=== PATIENT | female | born 1930 | race Caucasian/White ===

== ENCOUNTER 2017-07-10 10:10 | Inpatient (IN) | payer OTHER, BC, MEDICARE ==
[2017-07-10] MEDS: NS 1,000 ML IV (10:24)
[2017-07-10 10:42] LABS: BASO % 0.4 % (0.0-1.0); EOS % 0.3 % (0.0-3.0); HEMATOCRIT 44.1 % (36.0-47.0); HEMOGLOBIN 14.1 g/dl (12.0-16.0); IMMATURE GRANULOCYTE # 0.1 10^3/uL (0-0); IMMATURE GRANULOCYTE % 0.6 % (0-0); LYMPH # 1.4 10^3/uL (1.5-4.5); LYMPH % 13.4 % (24.0-44.0); MEAN CORPUSCULAR HEMOGLOBIN 29.6 pg (27.0-33.0); MEAN CORPUSCULAR VOLUME 92.6 fl (80.0-96.0); MONO # 0.6 10^3/uL (0.0-0.8); MONO % 5.8 % (0.0-5.0); NEUTROPHILS # 8.1 10^3/uL (1.8-7.7); NEUTROPHILS % 79.5 % (36.0-66.0); PLATELET COUNT, AUTOMATED 269 10^3/uL (150-450); RED BLOOD COUNT 4.76 10^6/uL (4.00-5.40); RED CELL DISTRIBUTION WIDTH 12.6 % (11.5-14.5); WHITE BLOOD COUNT 10.2 10^3/uL (4.0-10.0)
[2017-07-10] MEDS: ONDANSETRON 4MG/2ML VIAL (J2405) IV (10:49)
[2017-07-10] MEDS: MORPHINE 2 MG/ML 1ML SYRINGE IV ×2 (10:51→13:36)
[2017-07-10 10:52] LABS: INR 0.92; PROTHROMBIN TIME 12.5 SECONDS (12.4-14.5)
[2017-07-10 11:06] LABS: ALBUMIN 3.7 GM/DL (3.2-5.2); ALBUMIN/GLOBULIN RATIO 1.03 (1.00-1.93); ALKALINE PHOSPHATASE 87 U/L (45-117); ALT/SGPT 17 U/L (12-78); ANION GAP 10 MEQ/L (8-16); AST/SGOT 18 U/L (7-37); BILIRUBIN,DIRECT 0.1 MG/DL (0.0-0.2); BILIRUBIN,TOTAL 0.6 MG/DL (0.2-1.0); BLOOD UREA NITROGEN 15 MG/DL (7-18); CALCIUM LEVEL 8.5 MG/DL (8.8-10.2); CARBON DIOXIDE LEVEL 28 MEQ/L (21-32); CHLORIDE LEVEL 101 MEQ/L (98-107); CPK CREATINE PHOSPHOKINASE 50 U/L (26-192); CREATININE FOR GFR 0.87 MG/DL (0.55-1.02); GLOMERULAR FILTRATION RATE > 60.0 (>32); GLUCOSE, FASTING 173 MG/DL (83-110); POTASSIUM SERUM 4.1 MEQ/L (3.5-5.1); SODIUM LEVEL 139 MEQ/L (136-145); TOTAL PROTEIN 7.3 GM/DL (6.4-8.2); TROPONIN I < 0.02 NG/ML (< 0.10)
[2017-07-10 11:08] LABS: CK-MB VALUE MASS 1.1 NG/ML (0.0-3.6)
[2017-07-10] MEDS ORDERED: ACETAMINOPHEN 650 MG SUPP PR (12:30)
[2017-07-10] MEDS ORDERED: ACETAMINOPHEN TAB 650MG DOSE (2X325MG) PO (12:30)
[2017-07-10] MEDS ORDERED: BISACODYL 5 MG TAB PO (12:30)
[2017-07-10] MEDS ORDERED: ceFAZolin 1GM INJ (J0690 PER 500MG) As Ordered (16:03)
[2017-07-10] MEDS: ceFAZolin 1GM INJ (J0690 PER 500MG) As Ordered (16:53)
[2017-07-10] MEDS ORDERED: PHENYLephrine HCL 500 MCG/5 ML (100MCG/ML) SYRINGE (J2370) As Ordered ×3 (17:16→17:31)
[2017-07-10] MEDS ORDERED: PROPOFOL 200 MG/20 ML VIAL As Ordered (17:16)
[2017-07-10] MEDS ORDERED: LIDOCAINE 2% INJ 100 MG/5 ML SDV (FOR ANES.) As Ordered (17:16)
[2017-07-10] MEDS ORDERED: MIDAZOLAM INJ 2 MG/2 ML VIAL (J2250) As Ordered (17:16)
[2017-07-10] MEDS ORDERED: ePHEDrine SULFATE 25 MG/5 ML(5MG/ML) SYRINGE As Ordered (17:16)
[2017-07-10] MEDS ORDERED: fentaNYL 100 MCG/2 ML INJECTION (J3010) As Ordered (17:16)
[2017-07-10] MEDS ORDERED: KETAMINE HCL 200 MG/20 ML VIAL As Ordered (17:16)
[2017-07-10] MEDS ORDERED: ONDANSETRON 4MG/2ML VIAL (J2405) As Ordered (17:16)
[2017-07-10] MEDS: BUPIVACAINE HCL 0.25% 10 ML VIAL As Ordered (17:33)
[2017-07-10] MEDS: LIDOCAINE W/EPINEPHRINE 1% 20ML VIAL As Ordered (17:33)
[2017-07-10] MEDS ORDERED: fentaNYL 100 MCG/2 ML INJECTION (J3010) IV (18:15)
[2017-07-10] MEDS ORDERED: NORCO, ANEXSIA 5/325MG TABLET (HYDROcodone/ACETAMINOPHEN) PO (18:15)
[2017-07-10] MEDS ORDERED: ONDANSETRON 4MG/2ML VIAL (J2405) IV (18:15)
[2017-07-10] MEDS: LR 1,000 ML IV (18:15)
[2017-07-10] MEDS ORDERED: MORPHINE 2 MG/ML 1ML SYRINGE IV ×2 (18:45→22:15)
[2017-07-10] MEDS: D5W/LR 1,000 ML IV (19:30)
[2017-07-10] MEDS: DOCUSATE SODIUM 100 MG CAP PO (20:35)
[2017-07-10] MEDS: WARFARIN SOD 2.5 MG TAB PO (20:35)
[2017-07-10] MEDS: SENOKOT S TAB PO (20:35)
[2017-07-10] MEDS: PERCOCET 5MG/325MG TAB PO (20:37)
[2017-07-10] MEDS: CEFAZOLIN SOD 1 GM in APPROPRIATE DILUENT 1 EA IV (21:57)
[2017-07-11] MEDS: PERCOCET 5MG/325MG TAB PO ×4 (05:09→20:37)
[2017-07-11] MEDS: CEFAZOLIN SOD 1 GM in APPROPRIATE DILUENT 1 EA IV (05:28)
[2017-07-11 07:08] LABS: HEMATOCRIT 32.2 % (36.0-47.0); MEAN CORPUSCULAR HEMOGLOBIN 29.9 pg (27.0-33.0); MEAN CORPUSCULAR HGB CONC 32.6 g/dl (32.0-36.5); MEAN CORPUSCULAR VOLUME 91.7 fl (80.0-96.0); PLATELET COUNT, AUTOMATED 187 10^3/uL (150-450); RED BLOOD COUNT 3.51 10^6/uL (4.00-5.40); RED CELL DISTRIBUTION WIDTH 12.7 % (11.5-14.5)
[2017-07-11 07:13] LABS: HEMOGLOBIN 10.5 g/dl (12.0-16.0)
[2017-07-11 07:18] LABS: INR 1.13; PROTHROMBIN TIME 14.7 SECONDS (12.4-14.5)
[2017-07-11 07:33] LABS: ANION GAP 7 MEQ/L (8-16); BLOOD UREA NITROGEN 9 MG/DL (7-18); CALCIUM LEVEL 7.9 MG/DL (8.8-10.2); CARBON DIOXIDE LEVEL 28 MEQ/L (21-32); CHLORIDE LEVEL 104 MEQ/L (98-107); GLOMERULAR FILTRATION RATE > 60.0 (>32); GLUCOSE, FASTING 131 MG/DL (83-110); POTASSIUM SERUM 3.7 MEQ/L (3.5-5.1); SODIUM LEVEL 139 MEQ/L (136-145)
[2017-07-11] MEDS: MIRALAX *UNIT DOSE* 17GM PACKET PO (09:00)
[2017-07-11] MEDS: SENOKOT S TAB PO ×2 (09:44→20:37)
[2017-07-11] MEDS: METAMUCIL (PSYLLIUM) PACKET PO (09:44)
[2017-07-11] MEDS: DOCUSATE SODIUM 100 MG CAP PO ×2 (09:44→20:37)
[2017-07-11] MEDS: METOPROLOL SUCC *XL* 25MG TAB (TopROL *XL*) PO (09:45)
[2017-07-11] MEDS: ONDANSETRON 4MG/2ML VIAL (J2405) IV (09:56)
[2017-07-11] MEDS: WARFARIN SOD 5 MG TAB PO (16:29)
[2017-07-12] MEDS: PERCOCET 5MG/325MG TAB PO ×3 (04:13→12:48)
[2017-07-12 06:53] LABS: HEMATOCRIT 31.6 % (36.0-47.0); HEMOGLOBIN 10.1 g/dl (12.0-16.0); MEAN CORPUSCULAR HEMOGLOBIN 29.5 pg (27.0-33.0); MEAN CORPUSCULAR VOLUME 92.4 fl (80.0-96.0); PLATELET COUNT, AUTOMATED 163 10^3/uL (150-450); RED BLOOD COUNT 3.42 10^6/uL (4.00-5.40); RED CELL DISTRIBUTION WIDTH 12.7 % (11.5-14.5); WHITE BLOOD COUNT 7.8 10^3/uL (4.0-10.0)
[2017-07-12 07:09] LABS: INR 2.26; PROTHROMBIN TIME 25.8 SECONDS (12.4-14.5)
[2017-07-12 07:11] LABS: ANION GAP 5 MEQ/L (8-16); BLOOD UREA NITROGEN 9 MG/DL (7-18); CALCIUM LEVEL 7.5 MG/DL (8.8-10.2); CARBON DIOXIDE LEVEL 30 MEQ/L (21-32); CHLORIDE LEVEL 102 MEQ/L (98-107); CREATININE FOR GFR 0.57 MG/DL (0.55-1.02); GLOMERULAR FILTRATION RATE > 60.0 (>32); GLUCOSE, FASTING 96 MG/DL (83-110); POTASSIUM SERUM 4.3 MEQ/L (3.5-5.1); SODIUM LEVEL 137 MEQ/L (136-145)
[2017-07-12] MEDS: DOCUSATE SODIUM 100 MG CAP PO ×2 (08:44→20:18)
[2017-07-12] MEDS: MIRALAX *UNIT DOSE* 17GM PACKET PO (08:44)
[2017-07-12] MEDS: SENOKOT S TAB PO ×2 (08:44→20:18)
[2017-07-12] MEDS: METOPROLOL SUCC *XL* 25MG TAB (TopROL *XL*) PO (09:00)
[2017-07-12 12:33] LABS: HEMOGLOBIN 10.6 g/dl (12.0-16.0)
[2017-07-13] MEDS: PERCOCET 5MG/325MG TAB PO ×4 (00:12→19:41)
[2017-07-13 06:10] LABS: HEMATOCRIT 31.9 % (36.0-47.0); HEMOGLOBIN 10.1 g/dl (12.0-16.0); MEAN CORPUSCULAR HEMOGLOBIN 29.4 pg (27.0-33.0); MEAN CORPUSCULAR HGB CONC 31.7 g/dl (32.0-36.5); PLATELET COUNT, AUTOMATED 176 10^3/uL (150-450); RED BLOOD COUNT 3.43 10^6/uL (4.00-5.40); RED CELL DISTRIBUTION WIDTH 12.4 % (11.5-14.5); WHITE BLOOD COUNT 9.3 10^3/uL (4.0-10.0)
[2017-07-13 06:20] LABS: PROTHROMBIN TIME 32.5 SECONDS (12.4-14.5)
[2017-07-13 06:32] LABS: ANION GAP 9 MEQ/L (8-16); BLOOD UREA NITROGEN 14 MG/DL (7-18); CALCIUM LEVEL 8.1 MG/DL (8.8-10.2); CARBON DIOXIDE LEVEL 27 MEQ/L (21-32); CHLORIDE LEVEL 100 MEQ/L (98-107); CREATININE FOR GFR 0.52 MG/DL (0.55-1.02); GLOMERULAR FILTRATION RATE > 60.0 (>32); GLUCOSE, FASTING 55 MG/DL (83-110); POTASSIUM SERUM 4.7 MEQ/L (3.5-5.1); SODIUM LEVEL 136 MEQ/L (136-145)
[2017-07-13] MEDS: DOCUSATE SODIUM 100 MG CAP PO ×2 (09:40→19:40)
[2017-07-13] MEDS: MIRALAX *UNIT DOSE* 17GM PACKET PO (09:40)
[2017-07-13] MEDS: METOPROLOL SUCC *XL* 25MG TAB (TopROL *XL*) PO (09:41)
[2017-07-13] MEDS: SENOKOT S TAB PO ×2 (09:41→19:40)
[2017-07-14] MEDS: PERCOCET 5MG/325MG TAB PO (05:09)
[2017-07-14 07:13] LABS: HEMATOCRIT 32.2 % (36.0-47.0); HEMOGLOBIN 10.2 g/dl (12.0-16.0); MEAN CORPUSCULAR HEMOGLOBIN 29.4 pg (27.0-33.0); MEAN CORPUSCULAR HGB CONC 31.7 g/dl (32.0-36.5); MEAN CORPUSCULAR VOLUME 92.8 fl (80.0-96.0); PLATELET COUNT, AUTOMATED 219 10^3/uL (150-450); RED BLOOD COUNT 3.47 10^6/uL (4.00-5.40); RED CELL DISTRIBUTION WIDTH 12.6 % (11.5-14.5); WHITE BLOOD COUNT 7.5 10^3/uL (4.0-10.0)
[2017-07-14 07:27] LABS: ANION GAP 10 MEQ/L (8-16); BLOOD UREA NITROGEN 13 MG/DL (7-18); CALCIUM LEVEL 8.5 MG/DL (8.8-10.2); CARBON DIOXIDE LEVEL 29 MEQ/L (21-32); CHLORIDE LEVEL 99 MEQ/L (98-107); CREATININE FOR GFR 0.53 MG/DL (0.55-1.02); GLOMERULAR FILTRATION RATE > 60.0 (>32); GLUCOSE, FASTING 66 MG/DL (83-110); POTASSIUM SERUM 4.2 MEQ/L (3.5-5.1); SODIUM LEVEL 138 MEQ/L (136-145)
[2017-07-14 07:31] LABS: INR 2.91; PROTHROMBIN TIME 31.7 SECONDS (12.4-14.5)
[2017-07-14] MEDS: SENOKOT S TAB PO (08:21)
[2017-07-14] MEDS: DOCUSATE SODIUM 100 MG CAP PO (08:21)
[2017-07-14] MEDS: METOPROLOL SUCC *XL* 25MG TAB (TopROL *XL*) PO (08:22)
[2017-07-14] MEDS: MIRALAX *UNIT DOSE* 17GM PACKET PO (08:22)
[2017-07-14] MEDS: BISACODYL 10 MG SUPP PR (10:32)
[2017-07-14] MEDS: MAGNESIUM CITRATE 300 ML BTL PO (11:17)
== END 2017-07-14 13:25 | disposition home or self-care (01) | DRG 482 ==
LOC: M ED 10:10 → M ED INP 13:26 → M MS5PR 18:40
PROC: 0QS706Z Reposition Left Upper Femur with Intramedullary Internal Fixation Device, Open Approach (ICD-10-PCS; principal; 2017-07-10 13:34)
DX: S72.142A Displaced intertrochanteric fracture of left femur, initial encounter for closed fracture (principal); I10 Essential (primary) hypertension; W01.0XXA Fall on same level from slipping, tripping and stumbling without subsequent striking against object, initial encounter; Y92.010 Kitchen of single-family (private) house as the place of occurrence of the external cause; Y93.G3 Activity, cooking and baking; Y99.9 Unspecified external cause status; Z79.899 Other long term (current) drug therapy; Z90.710 Acquired absence of both cervix and uterus

== ENCOUNTER 2017-07-14 13:25 | Inpatient (IN) | payer OTHER ==
[~2017-07-14 13:25] MED LIST: MIRALAX *UNIT DOSE* 17GM PACKET PO
[2017-07-14] MEDS: LevoFLOXacin 250 MG TABLET PO (14:58)
[2017-07-14] MEDS: PERCOCET 5MG/325MG TAB PO (20:45)
[2017-07-14] MEDS: ACETAMINOPHEN TAB 650MG DOSE (2X325MG) PO (20:46)
[2017-07-14] MEDS: DOCUSATE SODIUM 100 MG CAP PO (21:00)
[2017-07-15] MEDS: LevoFLOXacin 250 MG TABLET PO (05:48)
[2017-07-15] MEDS: ACETAMINOPHEN TAB 650MG DOSE (2X325MG) PO (05:48)
[2017-07-15 06:48] LABS: BASO % 0.4 % (0.0-1.0); EOS # 0.2 10^3/uL (0.0-0.50); EOS % 2.1 % (0.0-3.0); HEMATOCRIT 32.1 % (36.0-47.0); HEMOGLOBIN 10.5 g/dl (12.0-16.0); IMMATURE GRANULOCYTE % 0.4 % (0-0); LYMPH % 14.1 % (24.0-44.0); MEAN CORPUSCULAR HEMOGLOBIN 29.5 pg (27.0-33.0); MEAN CORPUSCULAR HGB CONC 32.7 g/dl (32.0-36.5); MEAN CORPUSCULAR VOLUME 90.2 fl (80.0-96.0); MONO # 0.8 10^3/uL (0.0-0.8); MONO % 10.5 % (0.0-5.0); NEUTROPHILS # 5.2 10^3/uL (1.8-7.7); NEUTROPHILS % 72.5 % (36.0-66.0); PLATELET COUNT, AUTOMATED 235 10^3/uL (150-450); RED BLOOD COUNT 3.56 10^6/uL (4.00-5.40); RED CELL DISTRIBUTION WIDTH 12.4 % (11.5-14.5); WHITE BLOOD COUNT 7.1 10^3/uL (4.0-10.0)
[2017-07-15 07:06] LABS: ALBUMIN 2.7 GM/DL (3.2-5.2); ALBUMIN/GLOBULIN RATIO 0.77 (1.00-1.93); ALKALINE PHOSPHATASE 59 U/L (45-117); ALT/SGPT 11 U/L (12-78); ANION GAP 8 MEQ/L (8-16); AST/SGOT 25 U/L (7-37); BILIRUBIN,TOTAL 0.7 MG/DL (0.2-1.0); BLOOD UREA NITROGEN 6 MG/DL (7-18); CALCIUM LEVEL 8.2 MG/DL (8.8-10.2); CARBON DIOXIDE LEVEL 31 MEQ/L (21-32); CHLORIDE LEVEL 99 MEQ/L (98-107); CREATININE FOR GFR 0.45 MG/DL (0.55-1.02); GLOMERULAR FILTRATION RATE > 60.0 (>32); GLUCOSE, FASTING 107 MG/DL (83-110); POTASSIUM SERUM 4.2 MEQ/L (3.5-5.1); SODIUM LEVEL 138 MEQ/L (136-145); TOTAL PROTEIN 6.2 GM/DL (6.4-8.2)
[2017-07-15 07:09] LABS: INR 3.04; PROTHROMBIN TIME 32.8 SECONDS (12.4-14.5)
[2017-07-15] MEDS: DOCUSATE SODIUM 100 MG CAP PO ×2 (07:49→21:00)
[2017-07-15] MEDS: METOPROLOL SUCC *XL* 25MG TAB (TopROL *XL*) PO (07:59)
[2017-07-15] MEDS: PERCOCET 5MG/325MG TAB PO ×2 (16:39→21:05)
[2017-07-16] MEDS: PERCOCET 5MG/325MG TAB PO ×3 (05:46→21:12)
[2017-07-16] MEDS: LevoFLOXacin 250 MG TABLET PO (05:46)
[2017-07-16 06:35] LABS: HEMOGLOBIN 10.4 g/dl (12.0-16.0); MEAN CORPUSCULAR HEMOGLOBIN 29.5 pg (27.0-33.0); MEAN CORPUSCULAR HGB CONC 32.5 g/dl (32.0-36.5); MEAN CORPUSCULAR VOLUME 90.9 fl (80.0-96.0); PLATELET COUNT, AUTOMATED 245 10^3/uL (150-450); RED BLOOD COUNT 3.52 10^6/uL (4.00-5.40); RED CELL DISTRIBUTION WIDTH 12.6 % (11.5-14.5); WHITE BLOOD COUNT 5.9 10^3/uL (4.0-10.0)
[2017-07-16 07:03] LABS: FERRITIN 316 NG/ML (8-252); IRON (FE) 48 UG/DL (50-170); PERCENT SATURATION 20.1 % (13.2-45.0); TOTAL IRON BINDING CAPACITY 239 UG/DL (250-450)
[2017-07-16 07:19] LABS: INR 2.38
[2017-07-16] MEDS: DOCUSATE SODIUM 100 MG CAP PO ×2 (09:57→20:34)
[2017-07-16] MEDS: METOPROLOL SUCC *XL* 25MG TAB (TopROL *XL*) PO (09:58)
[2017-07-17] MEDS: LevoFLOXacin 250 MG TABLET PO (06:14)
[2017-07-17] MEDS: PERCOCET 5MG/325MG TAB PO ×3 (06:15→20:50)
[2017-07-17 06:55] LABS: PROTHROMBIN TIME 24.3 SECONDS (12.4-14.5)
[2017-07-17] MEDS: DOCUSATE SODIUM 100 MG CAP PO ×2 (08:16→20:50)
[2017-07-17] MEDS: METOPROLOL SUCC *XL* 25MG TAB (TopROL *XL*) PO (08:16)
[2017-07-17] MEDS: WARFARIN SOD 1 MG TAB PO (16:16)
[2017-07-17] MEDS: BISACODYL 5 MG TAB PO (20:50)
[2017-07-18] MEDS: PERCOCET 5MG/325MG TAB PO ×3 (03:22→20:38)
[2017-07-18] MEDS: LevoFLOXacin 250 MG TABLET PO (06:52)
[2017-07-18 07:01] LABS: INR 2.45; PROTHROMBIN TIME 27.6 SECONDS (12.4-14.5)
[2017-07-18 08:41] LABS: FOLATE 9.9 NG/ML (>5.4)
[2017-07-18 08:42] LABS: VITAMIN B12 LEVEL 423 PG/ML (247-911)
[2017-07-18] MEDS: DOCUSATE SODIUM 100 MG CAP PO ×2 (08:44→20:38)
[2017-07-18] MEDS: METOPROLOL SUCC *XL* 25MG TAB (TopROL *XL*) PO (08:45)
[2017-07-19] MEDS: LevoFLOXacin 250 MG TABLET PO (05:18)
[2017-07-19 07:25] LABS: INR 2.53; PROTHROMBIN TIME 28.3 SECONDS (12.4-14.5)
[2017-07-19] MEDS: DOCUSATE SODIUM 100 MG CAP PO ×2 (08:14→20:35)
[2017-07-19] MEDS: METOPROLOL SUCC *XL* 25MG TAB (TopROL *XL*) PO (08:14)
[2017-07-19] MEDS: PERCOCET 5MG/325MG TAB PO (08:15)
[2017-07-19] MEDS: ACETAMINOPHEN TAB 650MG DOSE (2X325MG) PO (20:36)
[2017-07-20] MEDS: LevoFLOXacin 250 MG TABLET PO (06:35)
[2017-07-20] MEDS: PERCOCET 5MG/325MG TAB PO (06:36)
[2017-07-20 07:47] LABS: HEMATOCRIT 33.7 % (36.0-47.0); HEMOGLOBIN 10.9 g/dl (12.0-16.0); MEAN CORPUSCULAR HEMOGLOBIN 29.2 pg (27.0-33.0); MEAN CORPUSCULAR HGB CONC 32.3 g/dl (32.0-36.5); MEAN CORPUSCULAR VOLUME 90.3 fl (80.0-96.0); PLATELET COUNT, AUTOMATED 390 10^3/uL (150-450); RED BLOOD COUNT 3.73 10^6/uL (4.00-5.40); RED CELL DISTRIBUTION WIDTH 13.4 % (11.5-14.5); WHITE BLOOD COUNT 9.2 10^3/uL (4.0-10.0)
[2017-07-20 07:50] LABS: ANION GAP 9 MEQ/L (8-16); BLOOD UREA NITROGEN 9 MG/DL (7-18); CALCIUM LEVEL 8.4 MG/DL (8.8-10.2); CARBON DIOXIDE LEVEL 29 MEQ/L (21-32); CHLORIDE LEVEL 100 MEQ/L (98-107); CREATININE FOR GFR 0.69 MG/DL (0.55-1.02); GLOMERULAR FILTRATION RATE > 60.0 (>32); GLUCOSE, FASTING 103 MG/DL (83-110); POTASSIUM SERUM 3.5 MEQ/L (3.5-5.1); SODIUM LEVEL 138 MEQ/L (136-145)
[2017-07-20 07:55] LABS: INR 2.22; PROTHROMBIN TIME 25.5 SECONDS (12.4-14.5)
[2017-07-20] MEDS: METOPROLOL SUCC *XL* 25MG TAB (TopROL *XL*) PO (09:06)
[2017-07-20] MEDS: DOCUSATE SODIUM 100 MG CAP PO ×2 (09:06→20:30)
[2017-07-20] MEDS: ACETAMINOPHEN TAB 650MG DOSE (2X325MG) PO (20:31)
[2017-07-21] MEDS: ACETAMINOPHEN TAB 650MG DOSE (2X325MG) PO ×2 (06:41→20:53)
[2017-07-21 07:44] LABS: INR 1.65
[2017-07-21] MEDS: METOPROLOL SUCC *XL* 25MG TAB (TopROL *XL*) PO (08:55)
[2017-07-21] MEDS: DOCUSATE SODIUM 100 MG CAP PO ×2 (08:55→20:53)
[2017-07-21] MEDS: BISACODYL 5 MG TAB PO (17:15)
[2017-07-21] MEDS: WARFARIN SOD 2.5 MG TAB PO (17:15)
[2017-07-21 17:17] LABS: APPEARANCE, URINE CLEAR (CLEAR); BACTERIA, URINE AUTO NEGATIVE (NEGATIVE); BILIRUBIN, URINE AUTO NEGATIVE (NEGATIVE); BLOOD, URINE BLOOD NEGATIVE (NEGATIVE); COLOR, URINE STRAW (YELLOW); GLUCOSE, URINE (UA) AUTO NEGATIVE (NEGATIVE); KETONE, URINE AUTO NEGATIVE (NEGATIVE); LEUKOCYTE ESTERASE, URINE AUTO NEGATIVE (NEGATIVE); NITRITE, URINE AUTO NEGATIVE (NEGATIVE); PROTEIN, URINE AUTO NEGATIVE (NEGATIVE); RBC, URINE AUTO 1 /HPF (0-3); SPECIFIC GRAVITY URINE AUTO 1.004 (1.002-1.035); SQUAMOUS EPITHELIAL CELL UR AU 0 /HPF (0-6); UROBILINOGEN, URINE AUTO 0.2 mg/dL (0.0-2.0); WBC, URINE AUTO 0 /HPF (0-3)
[2017-07-21] MEDS: MICONAZOLE-7 VAGINAL 2% CREAM 47.7 GM PV (20:53)
[2017-07-22 07:28] LABS: INR 1.78; PROTHROMBIN TIME 21.3 SECONDS (12.4-14.5)
[2017-07-22] MEDS: ACETAMINOPHEN TAB 650MG DOSE (2X325MG) PO ×2 (07:32→20:41)
[2017-07-22] MEDS: METOPROLOL SUCC *XL* 25MG TAB (TopROL *XL*) PO (08:41)
[2017-07-22] MEDS: DOCUSATE SODIUM 100 MG CAP PO ×2 (08:41→20:42)
[2017-07-22] MEDS ORDERED: WARFARIN SOD 4 MG TAB PO (17:00)
[2017-07-22] MEDS: WARFARIN SOD 2.5 MG TAB PO (18:01)
[2017-07-22] MEDS: MICONAZOLE-7 VAGINAL 2% CREAM 47.7 GM PV (20:44)
[2017-07-23 07:41] LABS: HEMATOCRIT 30.9 % (36.0-47.0); HEMOGLOBIN 9.9 g/dl (12.0-16.0); MEAN CORPUSCULAR HEMOGLOBIN 29.8 pg (27.0-33.0); MEAN CORPUSCULAR VOLUME 93.1 fl (80.0-96.0); PLATELET COUNT, AUTOMATED 324 10^3/uL (150-450); RED BLOOD COUNT 3.32 10^6/uL (4.00-5.40); RED CELL DISTRIBUTION WIDTH 13.6 % (11.5-14.5); WHITE BLOOD COUNT 7.1 10^3/uL (4.0-10.0)
[2017-07-23 08:06] LABS: ALBUMIN 2.8 GM/DL (3.2-5.2); ALBUMIN/GLOBULIN RATIO 1.04 (1.00-1.93); ALKALINE PHOSPHATASE 111 U/L (45-117); ALT/SGPT 22 U/L (12-78); ANION GAP 5 MEQ/L (8-16); AST/SGOT 30 U/L (7-37); BILIRUBIN,TOTAL 0.6 MG/DL (0.2-1.0); BLOOD UREA NITROGEN 9 MG/DL (7-18); CALCIUM LEVEL 8.4 MG/DL (8.8-10.2); CARBON DIOXIDE LEVEL 33 MEQ/L (21-32); CHLORIDE LEVEL 105 MEQ/L (98-107); CREATININE FOR GFR 0.54 MG/DL (0.55-1.02); GLOMERULAR FILTRATION RATE > 60.0 (>32); GLUCOSE, FASTING 92 MG/DL (83-110); POTASSIUM SERUM 4.3 MEQ/L (3.5-5.1); SODIUM LEVEL 143 MEQ/L (136-145); TOTAL PROTEIN 5.5 GM/DL (6.4-8.2)
[2017-07-23 08:08] LABS: INR 2.64; PROTHROMBIN TIME 29.3 SECONDS (12.4-14.5)
[2017-07-23] MEDS: DOCUSATE SODIUM 100 MG CAP PO ×2 (08:44→20:33)
[2017-07-23] MEDS: ACETAMINOPHEN TAB 650MG DOSE (2X325MG) PO ×2 (08:45→20:34)
[2017-07-23] MEDS: METOPROLOL SUCC *XL* 25MG TAB (TopROL *XL*) PO (08:45)
[2017-07-23] MEDS: MICONAZOLE-7 VAGINAL 2% CREAM 47.7 GM PV (20:34)
[2017-07-24 07:48] LABS: INR 2.76; PROTHROMBIN TIME 30.4 SECONDS (12.4-14.5)
[2017-07-24] MEDS: METOPROLOL SUCC *XL* 25MG TAB (TopROL *XL*) PO (09:01)
[2017-07-24] MEDS: DOCUSATE SODIUM 100 MG CAP PO ×2 (09:01→21:00)
[2017-07-24] MEDS: ACETAMINOPHEN TAB 650MG DOSE (2X325MG) PO ×2 (09:02→21:07)
[2017-07-25] MEDS: METOPROLOL SUCC *XL* 25MG TAB (TopROL *XL*) PO (08:35)
[2017-07-25] MEDS: DOCUSATE SODIUM 100 MG CAP PO ×2 (08:35→20:30)
[2017-07-25 08:47] LABS: INR 2.55; PROTHROMBIN TIME 28.5 SECONDS (12.4-14.5)
[2017-07-25] MEDS: NYSTATIN 100,000 UNITS/GM TOPICAL PWD 15 GM TOP ×2 (11:15→20:32)
[2017-07-25] MEDS: ACETAMINOPHEN TAB 650MG DOSE (2X325MG) PO (20:33)
[2017-07-26 07:24] LABS: HEMATOCRIT 29.8 % (36.0-47.0); HEMOGLOBIN 9.6 g/dl (12.0-16.0); MEAN CORPUSCULAR HEMOGLOBIN 29.9 pg (27.0-33.0); MEAN CORPUSCULAR HGB CONC 32.2 g/dl (32.0-36.5); MEAN CORPUSCULAR VOLUME 92.8 fl (80.0-96.0); PLATELET COUNT, AUTOMATED 292 10^3/uL (150-450); RED BLOOD COUNT 3.21 10^6/uL (4.00-5.40)
[2017-07-26] MEDS: METOPROLOL SUCC *XL* 25MG TAB (TopROL *XL*) PO (08:41)
[2017-07-26] MEDS: NYSTATIN 100,000 UNITS/GM TOPICAL PWD 15 GM TOP (08:42)
[2017-07-26] MEDS: DOCUSATE SODIUM 100 MG CAP PO (08:42)
== END 2017-07-26 13:30 | disposition home health service (06) | DRG 560 ==
LOC: M PM&R 13:25
DX: S72.142D Displaced intertrochanteric fracture of left femur, subsequent encounter for closed fracture with routine healing (principal); N39.0 Urinary tract infection, site not specified; I10 Essential (primary) hypertension; B37.3 Candidiasis of vulva and vagina; D64.9 Anemia, unspecified; B96.1 Klebsiella pneumoniae [K. pneumoniae] as the cause of diseases classified elsewhere; R73.9 Hyperglycemia, unspecified; I25.10 Atherosclerotic heart disease of native coronary artery without angina pectoris; W22.8XXD Striking against or struck by other objects, subsequent encounter; Y92.010 Kitchen of single-family (private) house as the place of occurrence of the external cause; Z79.899 Other long term (current) drug therapy

== ENCOUNTER → 2017-10-27 | Outpatient (REF) | payer OTHER, MEDICARE ==
[2017-10-27 15:13] LABS: ALBUMIN 3.6 GM/DL (3.2-5.2); ALBUMIN/GLOBULIN RATIO 1.06 (1.00-1.93); ALKALINE PHOSPHATASE 81 U/L (45-117); ALT/SGPT 12 U/L (12-78); ANION GAP 7 MEQ/L (8-16); AST/SGOT 19 U/L (7-37); BILIRUBIN,TOTAL 0.4 MG/DL (0.2-1.0); BLOOD UREA NITROGEN 14 MG/DL (7-18); CALCIUM LEVEL 8.9 MG/DL (8.8-10.2); CARBON DIOXIDE LEVEL 29 MEQ/L (21-32); CHLORIDE LEVEL 108 MEQ/L (98-107); CHOLESTEROL LEVEL 233 MG/DL (<200); CHOLESTEROL RISK RATIO 2.841 (<5); CREATININE FOR GFR 0.78 MG/DL (0.55-1.30); GLOMERULAR FILTRATION RATE > 60.0 (>32); GLUCOSE, FASTING 123 MG/DL (70-100); HDL CHOLESTEROL 82 MG/DL (>40); LDL CHOLESTEROL 132.2 MG/DL (<100); NON-HDL-C 151 MG/DL; POTASSIUM SERUM 4.3 MEQ/L (3.5-5.1); SODIUM LEVEL 144 MEQ/L (136-145); TRIGLYCERIDES LEVEL 94 MG/DL (<150)
== END ==
LOC: M SFHCLACO 08:11
DX: K76.89 Other specified diseases of liver (principal); I10 Essential (primary) hypertension
CPT/HCPCS: 80053

== ENCOUNTER → 2017-11-03 | Outpatient (REF) | payer OTHER, MEDICARE ==
[2017-11-03 15:19] LABS: ESTIMATED AVERAGE GLUCOSE 128 MG/DL (60-110); HEMOGLOBIN A1c 6.1 %
== END ==
LOC: M SFHCLACO 08:16
DX: R73.9 Hyperglycemia, unspecified (principal)
CPT/HCPCS: 83036

== ENCOUNTER 2021-04-24 00:34 | Inpatient (IN) | payer MEDICARE, OTHER ==
[~2021-04-24] VITALS: Ht 152.4 cm; Wt 38.8 kg
[~2021-04-24 00:34] MED LIST changes: +METO1TAB32 PO; -MIRALAX *UNIT DOSE* 17GM PACKET PO; +NYST-15 TOP; +PERC5TAB12 PO; +PERCOCET PO; +XARE10TA PO
[2021-04-24 02:26] LABS: BASO % 0.2 % (0.0-1.0); HEMATOCRIT 40.9 % (36.0-47.0); HEMOGLOBIN 13.5 g/dl (12.0-15.5); LYMPH # 0.6 10^3/uL (1.5-5.0); LYMPH % 13.9 % (24.0-44.0); MEAN CORPUSCULAR HEMOGLOBIN 28.7 pg (27.0-33.0); MEAN CORPUSCULAR VOLUME 86.8 fl (80.0-96.0); MONO # 0.4 10^3/uL (0.0-0.8); MONO % 8.9 % (2.0-8.0); NEUTROPHILS # 3.2 10^3/uL (1.5-8.5); NEUTROPHILS % 76.3 % (36.0-66.0); PLATELET COUNT, AUTOMATED 136 10^3/uL (150-450); RED BLOOD COUNT 4.71 10^6/uL (4.00-5.40); WHITE BLOOD COUNT 4.2 10^3/uL (4.0-10.0)
[2021-04-24 02:59] LABS: ALBUMIN 3.3 GM/DL (3.2-5.2); ALT/SGPT 15 U/L (12-78); BILIRUBIN,DIRECT 0.3 MG/DL (0.0-0.2); BILIRUBIN,TOTAL 0.7 MG/DL (0.2-1.0); BLOOD UREA NITROGEN 15 MG/DL (7-18); CARBON DIOXIDE LEVEL 25 MEQ/L (21-32); CHLORIDE LEVEL 96 MEQ/L (98-107); CPK CREATINE PHOSPHOKINASE 82 U/L (26-192); CREATININE FOR GFR 0.69 MG/DL (0.55-1.30); GLOMERULAR FILTRATION RATE > 60.0 (>32); GLUCOSE, FASTING 77 MG/DL (70-100); MB/CK RELATIVE INDEX 1.22 (< OR =4); POTASSIUM SERUM 3.8 MEQ/L (3.5-5.1); SODIUM LEVEL 134 MEQ/L (136-145); THYROID STIMULATING HORMONE 0.628 uIU/ML (0.358-3.740); TOTAL PROTEIN 6.3 GM/DL (6.4-8.2); TROPONIN I < 0.02 NG/ML (< 0.10)
[2021-04-24] MEDS ORDERED: MAALOX 30 ML SUSP *UDC PO PRN (06:40)
[2021-04-24 07:39] LABS: HEMATOCRIT 41.2 % (36.0-47.0); HEMOGLOBIN 13.9 g/dl (12.0-15.5); MEAN CORPUSCULAR HGB CONC 33.7 g/dl (32.0-36.5); MEAN CORPUSCULAR VOLUME 85.8 fl (80.0-96.0); PLATELET COUNT, AUTOMATED 147 10^3/uL (150-450); WHITE BLOOD COUNT 4.4 10^3/uL (4.0-10.0)
[2021-04-24 07:55] LABS: INR 1.02; PROTHROMBIN TIME 13.8 SECONDS (12.7-14.5)
[2021-04-24 07:56] LABS: PARTIAL THROMBOPLASTIN TIME 31.1 SECONDS (25.9-37.0)
[2021-04-24 07:58] LABS: D-DIMER QUANT 793.6 ng/ml (<500)
[2021-04-24 08:12] LABS: BLOOD UREA NITROGEN 12 MG/DL (7-18); C REACTIVE PROTEIN QUANTITATIV 2.49 MG/DL (0.00-0.30); CALCIUM LEVEL 7.9 MG/DL (8.8-10.2); CARBON DIOXIDE LEVEL 23 MEQ/L (21-32); CHLORIDE LEVEL 98 MEQ/L (98-107); FERRITIN 825 NG/ML (8-252); GLOMERULAR FILTRATION RATE > 60.0 (>32); GLUCOSE, FASTING 84 MG/DL (70-100); LDH LACTATE DEHYDROGENASE 272 U/L (84-246); MAGNESIUM LEVEL 1.8 MG/DL (1.8-2.4); PHOSPHORUS LEVEL 2.6 MG/DL (2.5-4.9); POTASSIUM SERUM 3.7 MEQ/L (3.5-5.1); SODIUM LEVEL 134 MEQ/L (136-145)
[2021-04-24 08:39] LABS: ANISOCYTOSIS 1+; ATYPICAL LYMPH 1 % (0-5); LYMPHOCYTES 9 % (16-44); METAMYELOCYTES 1 % (0-0); MONOCYTES 4 % (0-5); NEUTROPHILS 80 % (28-66); PLATELET ESTIMATE NORMAL (NORMAL)
[2021-04-24] MEDS ORDERED: NS 1,000 ML IV ONE (09:05)
[2021-04-24] MEDS ORDERED: METO1TAB32 PO (10:42)
[2021-04-24] MEDS ORDERED: HOME MED LIST COMPLETE! XX SCH (10:45)
[2021-04-24 17:30] VITALS: BP 132/74; O2SAT 95
[2021-04-24 20:00] VITALS: BP 137/61; O2SAT 96
[2021-04-24] MEDS: ATORVASTATIN 20 MG TAB PO SCH (20:39)
[2021-04-24] MEDS: METOPROLOL SUCC *XL* 25MG TAB (TopROL *XL*) PO SCH (20:39)
[2021-04-24] MEDS: HEPARIN SOD (PORCINE) 5000UNITS/ML 1ML VIAL/SYRINGE SQ SCH (20:39)
[2021-04-24] MEDS ORDERED: PROHANCE 279.3MG/ML 5ML VIAL As Ordered ONE (21:41)
[2021-04-25] VITALS (7 sets, daily range): BP systolic 100–124; BP diastolic 52–61; O2SAT 94–96
[2021-04-25] MEDS: PIPERACILLIN/TAZOBACTAM SOD 3.375 GM in D5W MINI-BAG PLUS 50 ML IV SCH ×3 (06:35→18:48)
[2021-04-25 06:36] LABS: HEMOGLOBIN 12.4 g/dl (12.0-15.5); MEAN CORPUSCULAR HEMOGLOBIN 28.3 pg (27.0-33.0); MEAN CORPUSCULAR HGB CONC 32.6 g/dl (32.0-36.5); MEAN CORPUSCULAR VOLUME 86.8 fl (80.0-96.0); PLATELET COUNT, AUTOMATED 141 10^3/uL (150-450); RED BLOOD COUNT 4.38 10^6/uL (4.00-5.40); WHITE BLOOD COUNT 3.8 10^3/uL (4.0-10.0)
[2021-04-25 06:50] LABS: BLOOD UREA NITROGEN 10 MG/DL (7-18); CARBON DIOXIDE LEVEL 22 MEQ/L (21-32); CHLORIDE LEVEL 103 MEQ/L (98-107); GLOMERULAR FILTRATION RATE > 60.0 (>32); GLUCOSE, FASTING 73 MG/DL (70-100); POTASSIUM SERUM 3.2 MEQ/L (3.5-5.1); SODIUM LEVEL 137 MEQ/L (136-145)
[2021-04-25] MEDS: HEPARIN SOD (PORCINE) 5000UNITS/ML 1ML VIAL/SYRINGE SQ SCH ×2 (08:10→22:04)
[2021-04-25] MEDS: METOPROLOL SUCC *XL* 25MG TAB (TopROL *XL*) PO SCH (09:00)
[2021-04-25] MEDS: POTASSIUM CHLORIDE 10MEQ SR TABLET PO SCH ×2 (10:15→15:33)
[2021-04-25 16:36] LABS: BLOOD UREA NITROGEN 10 MG/DL (7-18); CALCIUM LEVEL 7.8 MG/DL (8.8-10.2); CARBON DIOXIDE LEVEL 24 MEQ/L (21-32); CHLORIDE LEVEL 106 MEQ/L (98-107); CREATININE FOR GFR 0.66 MG/DL (0.55-1.30); GLOMERULAR FILTRATION RATE > 60.0 (>32); GLUCOSE, FASTING 97 MG/DL (70-100); POTASSIUM SERUM 4.7 MEQ/L (3.5-5.1); SODIUM LEVEL 138 MEQ/L (136-145)
[2021-04-25] MEDS: ATORVASTATIN 20 MG TAB PO SCH (22:04)
[2021-04-26] MEDS: PIPERACILLIN/TAZOBACTAM SOD 3.375 GM in D5W MINI-BAG PLUS 50 ML IV SCH ×2 (00:36→05:23)
[2021-04-26 04:17] VITALS: BP 142/63
[2021-04-26 08:53] LABS: HEMOGLOBIN 12.5 g/dl (12.0-15.5); MEAN CORPUSCULAR HEMOGLOBIN 28.3 pg (27.0-33.0); MEAN CORPUSCULAR HGB CONC 32.9 g/dl (32.0-36.5); MEAN CORPUSCULAR VOLUME 86.2 fl (80.0-96.0); PLATELET COUNT, AUTOMATED 181 10^3/uL (150-450); RED BLOOD COUNT 4.41 10^6/uL (4.00-5.40); WHITE BLOOD COUNT 4.6 10^3/uL (4.0-10.0)
[2021-04-26 09:00] VITALS: O2SAT 95
[2021-04-26 09:32] LABS: ALBUMIN 2.5 GM/DL (3.2-5.2); ALT/SGPT 15 U/L (12-78); BLOOD UREA NITROGEN 8 MG/DL (7-18); CARBON DIOXIDE LEVEL 23 MEQ/L (21-32); CHLORIDE LEVEL 105 MEQ/L (98-107); CREATININE FOR GFR 0.69 MG/DL (0.55-1.30); GLOMERULAR FILTRATION RATE > 60.0 (>32); GLUCOSE, FASTING 110 MG/DL (70-100); MAGNESIUM LEVEL 1.7 MG/DL (1.8-2.4); SODIUM LEVEL 138 MEQ/L (136-145); TOTAL PROTEIN 5.7 GM/DL (6.4-8.2)
[2021-04-26 09:38] LABS: ATYPICAL LYMPH 4 % (0-5); LYMPHOCYTES 14 % (16-44); MONOCYTES 3 % (0-5); NEUTROPHILS 75 % (28-66)
[2021-04-26 09:39] LABS: OVALOCYTES 1+; PLATELET ESTIMATE NORMAL (NORMAL); SCHISTOCYTES 1+
[2021-04-26] MEDS ORDERED: COMBIVENT RESPIMAT 100-20MCG INHALER 4GM INH PRN (10:05)
[2021-04-26] MEDS: METOPROLOL SUCC *XL* 25MG TAB (TopROL *XL*) PO SCH (10:56)
[2021-04-26] MEDS: HEPARIN SOD (PORCINE) 5000UNITS/ML 1ML VIAL/SYRINGE SQ SCH ×2 (10:57→20:07)
[2021-04-26 14:00] VITALS: BP 120/73
[2021-04-26 20:00] VITALS: BP 100/60
[2021-04-26] MEDS: MAG SULF 1GM/100ML (MAG RUN) 1 GM in IV 1 EA IV SCH ×2 (20:07→21:11)
[2021-04-26] MEDS: ATORVASTATIN 20 MG TAB PO SCH (20:07)
[2021-04-26 22:00] VITALS: O2SAT 94
[2021-04-27] VITALS: O2SAT 95
[2021-04-27 06:00] VITALS: BP 105/58; O2SAT 94
[2021-04-27] MEDS: METOPROLOL SUCC *XL* 25MG TAB (TopROL *XL*) PO SCH (09:00)
[2021-04-27] MEDS: HEPARIN SOD (PORCINE) 5000UNITS/ML 1ML VIAL/SYRINGE SQ SCH ×2 (09:22→21:27)
[2021-04-27 20:00] VITALS: O2SAT 96
[2021-04-27] MEDS: ATORVASTATIN 20 MG TAB PO SCH (21:26)
[2021-04-28 05:47] VITALS: O2SAT 96
[2021-04-28 05:52] VITALS: BP 103/55
[2021-04-28] MEDS: HEPARIN SOD (PORCINE) 5000UNITS/ML 1ML VIAL/SYRINGE SQ SCH ×2 (09:48→22:24)
[2021-04-28] MEDS: METOPROLOL SUCC *XL* 25MG TAB (TopROL *XL*) PO SCH (09:52)
[2021-04-28 18:00] VITALS: O2SAT 95
[2021-04-28 20:00] VITALS: O2SAT 95
[2021-04-28] MEDS: ATORVASTATIN 20 MG TAB PO SCH (22:24)
[2021-04-28 23:48] VITALS: O2SAT 94
[2021-04-29 04:02] VITALS: O2SAT 96
[2021-04-29 05:48] VITALS: BP 116/69
[2021-04-29] MEDS: METOPROLOL SUCC *XL* 25MG TAB (TopROL *XL*) PO SCH (09:55)
[2021-04-29] MEDS: HEPARIN SOD (PORCINE) 5000UNITS/ML 1ML VIAL/SYRINGE SQ SCH ×2 (09:55→20:37)
[2021-04-29] MEDS: ACETAMINOPHEN TAB 650MG DOSE (2X325MG) PO PRN (14:51)
[2021-04-29 19:24] VITALS: O2SAT 95
[2021-04-29] MEDS: ATORVASTATIN 20 MG TAB PO SCH (20:37)
[2021-04-29 23:53] VITALS: O2SAT 94
[2021-04-30 03:48] VITALS: O2SAT 96
[2021-04-30 06:04] VITALS: BP 166/92
[2021-04-30] MEDS ORDERED: SIMETHICONE 80MG CHEW TAB PO PRN (06:15)
[2021-04-30 06:44] LABS: ABG BASE EXCESS 1.3 (-2.0-2.0); ABG HCO3 24.2 MEQ/L (22.0-26.0); ABG O2 SATURATION 92.8 % (95.0-99.0); ABG PARTIAL PRESSURE CO2 32.8 mmHg (35.0-45.0); ABG STANDARD HCO3 25.6 MEQ/L (22.0-26.0); ABG TOTAL CO2 25.2 MEQ/L (23.0-31.0); ABG pH (ARTERIAL) 7.485 UNITS (7.350-7.450)
[2021-04-30 07:12] LABS: BASO % 0.4 % (0.0-1.0); EOS % 0.8 % (0.0-3.0); HEMATOCRIT 40.1 % (36.0-47.0); HEMOGLOBIN 13.1 g/dl (12.0-15.5); LYMPH # 0.7 10^3/uL (1.5-5.0); LYMPH % 13.4 % (24.0-44.0); MEAN CORPUSCULAR HEMOGLOBIN 28.4 pg (27.0-33.0); MEAN CORPUSCULAR HGB CONC 32.7 g/dl (32.0-36.5); MEAN CORPUSCULAR VOLUME 86.8 fl (80.0-96.0); MONO # 0.5 10^3/uL (0.0-0.8); MONO % 10.3 % (2.0-8.0); NEUTROPHILS # 3.7 10^3/uL (1.5-8.5); NEUTROPHILS % 73.9 % (36.0-66.0); PLATELET COUNT, AUTOMATED 318 10^3/uL (150-450); RED BLOOD COUNT 4.62 10^6/uL (4.00-5.40); WHITE BLOOD COUNT 4.9 10^3/uL (4.0-10.0)
[2021-04-30 07:33] LABS: ALBUMIN 2.5 GM/DL (3.2-5.2); ALT/SGPT 27 U/L (12-78); BILIRUBIN,TOTAL 0.8 MG/DL (0.2-1.0); BLOOD UREA NITROGEN 17 MG/DL (7-18); CALCIUM LEVEL 8.1 MG/DL (8.8-10.2); CARBON DIOXIDE LEVEL 26 MEQ/L (21-32); CHLORIDE LEVEL 103 MEQ/L (98-107); CREATININE FOR GFR 0.63 MG/DL (0.55-1.30); GLOMERULAR FILTRATION RATE > 60.0 (>32); GLUCOSE, FASTING 81 MG/DL (70-100); MAGNESIUM LEVEL 2.1 MG/DL (1.8-2.4); NT-PRO BNP 1352 PG/ML (<450); POTASSIUM SERUM 3.9 MEQ/L (3.5-5.1); SODIUM LEVEL 139 MEQ/L (136-145); TOTAL PROTEIN 6.1 GM/DL (6.4-8.2)
[2021-04-30 08:00] VITALS: O2SAT 95
[2021-04-30] MEDS: METOPROLOL SUCC *XL* 25MG TAB (TopROL *XL*) PO SCH (09:46)
[2021-04-30] MEDS: HEPARIN SOD (PORCINE) 5000UNITS/ML 1ML VIAL/SYRINGE SQ SCH ×2 (09:46→21:27)
[2021-04-30 12:00] VITALS: O2SAT 95
[2021-04-30 16:00] VITALS: O2SAT 96
[2021-04-30 20:00] VITALS: O2SAT 96
[2021-04-30] MEDS: ATORVASTATIN 20 MG TAB PO SCH (21:28)
[2021-05-01] VITALS: O2SAT 96
[2021-05-01 04:00] VITALS: O2SAT 96
[2021-05-01 08:00] VITALS: O2SAT 97
[2021-05-01] MEDS: HEPARIN SOD (PORCINE) 5000UNITS/ML 1ML VIAL/SYRINGE SQ SCH ×2 (09:41→20:23)
[2021-05-01] MEDS: METOPROLOL SUCC *XL* 25MG TAB (TopROL *XL*) PO SCH (09:41)
[2021-05-01 12:00] VITALS: O2SAT 96
[2021-05-01 16:00] VITALS: O2SAT 97
[2021-05-01 20:00] VITALS: O2SAT 97
[2021-05-01] MEDS: ATORVASTATIN 20 MG TAB PO SCH (20:23)
[2021-05-02] VITALS: O2SAT 95
[2021-05-02 05:53] VITALS: BP 146/65
[2021-05-02] MEDS: METOPROLOL SUCC *XL* 25MG TAB (TopROL *XL*) PO SCH (09:04)
[2021-05-02] MEDS: HEPARIN SOD (PORCINE) 5000UNITS/ML 1ML VIAL/SYRINGE SQ SCH ×2 (09:04→20:27)
[2021-05-02 12:00] VITALS: O2SAT 96
[2021-05-02 16:00] VITALS: O2SAT 95
[2021-05-02] MEDS: ATORVASTATIN 20 MG TAB PO SCH (20:26)
[2021-05-03 05:41] VITALS: BP 124/64
[2021-05-03] MEDS: HEPARIN SOD (PORCINE) 5000UNITS/ML 1ML VIAL/SYRINGE SQ SCH ×2 (08:16→20:31)
[2021-05-03] MEDS: METOPROLOL SUCC *XL* 25MG TAB (TopROL *XL*) PO SCH (08:17)
[2021-05-03 20:00] VITALS: BP 141/60
[2021-05-03] MEDS: ATORVASTATIN 20 MG TAB PO SCH (20:31)
[2021-05-04 06:00] VITALS: BP 131/61
[2021-05-04] MEDS: METOPROLOL SUCC *XL* 25MG TAB (TopROL *XL*) PO SCH (09:13)
[2021-05-04] MEDS: HEPARIN SOD (PORCINE) 5000UNITS/ML 1ML VIAL/SYRINGE SQ SCH ×2 (09:13→22:14)
[2021-05-04 21:17] LABS: BASO % 0.4 % (0.0-1.0); EOS % 0.5 % (0.0-3.0); HEMATOCRIT 38.8 % (36.0-47.0); HEMOGLOBIN 12.3 g/dl (12.0-15.5); LYMPH # 0.8 10^3/uL (1.5-5.0); LYMPH % 14.8 % (24.0-44.0); MEAN CORPUSCULAR HEMOGLOBIN 28.3 pg (27.0-33.0); MEAN CORPUSCULAR HGB CONC 31.7 g/dl (32.0-36.5); MEAN CORPUSCULAR VOLUME 89.4 fl (80.0-96.0); MONO # 0.6 10^3/uL (0.0-0.8); MONO % 11.1 % (2.0-8.0); NEUTROPHILS % 72.5 % (36.0-66.0); PLATELET COUNT, AUTOMATED 304 10^3/uL (150-450); RED BLOOD COUNT 4.34 10^6/uL (4.00-5.40); WHITE BLOOD COUNT 5.5 10^3/uL (4.0-10.0)
[2021-05-04 21:37] LABS: ALBUMIN 2.3 GM/DL (3.2-5.2); ALT/SGPT 24 U/L (12-78); BILIRUBIN,TOTAL 0.7 MG/DL (0.2-1.0); BLOOD UREA NITROGEN 13 MG/DL (7-18); CALCIUM LEVEL 8.7 MG/DL (8.8-10.2); CARBON DIOXIDE LEVEL 26 MEQ/L (21-32); CHLORIDE LEVEL 105 MEQ/L (98-107); CREATININE FOR GFR 0.57 MG/DL (0.55-1.30); GLOMERULAR FILTRATION RATE > 60.0 (>32); GLUCOSE, FASTING 116 MG/DL (70-100); POTASSIUM SERUM 3.8 MEQ/L (3.5-5.1); SODIUM LEVEL 139 MEQ/L (136-145)
[2021-05-04] MEDS: hydrOXYzine 25 MG TAB PO PRN (22:14)
[2021-05-04] MEDS: ATORVASTATIN 20 MG TAB PO SCH (22:14)
[2021-05-05 04:00] VITALS: BP 130/71
[2021-05-05] MEDS: METOPROLOL SUCC *XL* 25MG TAB (TopROL *XL*) PO SCH (08:59)
[2021-05-05] MEDS: HEPARIN SOD (PORCINE) 5000UNITS/ML 1ML VIAL/SYRINGE SQ SCH ×2 (08:59→21:37)
[2021-05-05] MEDS: ATORVASTATIN 20 MG TAB PO SCH (21:36)
[2021-05-06 04:00] VITALS: BP 119/65
[2021-05-06] MEDS: HEPARIN SOD (PORCINE) 5000UNITS/ML 1ML VIAL/SYRINGE SQ SCH ×2 (09:49→21:30)
[2021-05-06] MEDS: METOPROLOL SUCC *XL* 25MG TAB (TopROL *XL*) PO SCH (09:49)
[2021-05-06] MEDS: ATORVASTATIN 20 MG TAB PO SCH (21:30)
[2021-05-07 04:00] VITALS: BP 117/59
[2021-05-07] MEDS: HEPARIN SOD (PORCINE) 5000UNITS/ML 1ML VIAL/SYRINGE SQ SCH ×2 (09:17→20:17)
[2021-05-07] MEDS: METOPROLOL SUCC *XL* 25MG TAB (TopROL *XL*) PO SCH (09:20)
[2021-05-07 12:00] VITALS: BP 122/65
[2021-05-07] MEDS: ATORVASTATIN 20 MG TAB PO SCH (20:17)
[2021-05-08 05:30] VITALS: BP 129/64
[2021-05-08 06:00] VITALS: BP 120/53
[2021-05-08] MEDS: METOPROLOL SUCC *XL* 25MG TAB (TopROL *XL*) PO SCH (10:45)
[2021-05-08] MEDS: HEPARIN SOD (PORCINE) 5000UNITS/ML 1ML VIAL/SYRINGE SQ SCH ×2 (10:45→21:44)
[2021-05-08] MEDS: ATORVASTATIN 20 MG TAB PO SCH (21:44)
[2021-05-09] MEDS: hydrOXYzine 25 MG TAB PO PRN ×2 (02:28→21:03)
[2021-05-09] MEDS: ACETAMINOPHEN TAB 650MG DOSE (2X325MG) PO PRN ×2 (02:28→21:04)
[2021-05-09] MEDS: METOPROLOL SUCC *XL* 25MG TAB (TopROL *XL*) PO SCH (09:32)
[2021-05-09] MEDS: HEPARIN SOD (PORCINE) 5000UNITS/ML 1ML VIAL/SYRINGE SQ SCH ×2 (09:32→21:03)
[2021-05-09] MEDS: ATORVASTATIN 20 MG TAB PO SCH (21:03)
[2021-05-10 04:13] VITALS: BP 142/63
[2021-05-10] MEDS: METOPROLOL SUCC *XL* 25MG TAB (TopROL *XL*) PO SCH (09:00)
[2021-05-10] MEDS: HEPARIN SOD (PORCINE) 5000UNITS/ML 1ML VIAL/SYRINGE SQ SCH ×2 (10:00→20:00)
[2021-05-10] MEDS: hydrOXYzine 25 MG TAB PO PRN (10:29)
[2021-05-10] MEDS: ATORVASTATIN 20 MG TAB PO SCH (20:00)
[2021-05-10] MEDS: MOM 30ML SUSPENSION UDC PO PRN (20:00)
[2021-05-11 04:27] VITALS: BP 121/65
[2021-05-11] MEDS: METOPROLOL SUCC *XL* 25MG TAB (TopROL *XL*) PO SCH (08:51)
[2021-05-11] MEDS: HEPARIN SOD (PORCINE) 5000UNITS/ML 1ML VIAL/SYRINGE SQ SCH ×2 (08:52→20:48)
[2021-05-11 18:00] VITALS: BP 125/71
[2021-05-11 20:00] VITALS: BP 128/70
[2021-05-11] MEDS: hydrOXYzine 25 MG TAB PO PRN (20:48)
[2021-05-11] MEDS: ATORVASTATIN 20 MG TAB PO SCH (20:48)
[2021-05-12 06:00] VITALS: BP 121/67
[2021-05-12] MEDS: ACETAMINOPHEN TAB 650MG DOSE (2X325MG) PO PRN (09:09)
[2021-05-12] MEDS: hydrOXYzine 25 MG TAB PO PRN ×2 (09:09→22:26)
[2021-05-12] MEDS: HEPARIN SOD (PORCINE) 5000UNITS/ML 1ML VIAL/SYRINGE SQ SCH ×2 (09:09→20:09)
[2021-05-12] MEDS: METOPROLOL SUCC *XL* 25MG TAB (TopROL *XL*) PO SCH (09:10)
[2021-05-12] MEDS ORDERED: LIDOCAINE 5% (LIDODERM) PATCH TD ONE (13:25)
[2021-05-12] MEDS: LACTIC ACID 12% LOTION 225 GM BTL TOP SCH (14:52)
[2021-05-12] MEDS: FUROSEMIDE 20 MG TAB PO SCH (14:52)
[2021-05-12] MEDS: ATORVASTATIN 20 MG TAB PO SCH (20:09)
[2021-05-12] MEDS ORDERED: **NOTE PATIENT COMMENT** MISC XX ONE (21:00)
[2021-05-12 22:00] VITALS: BP 100/49
[2021-05-13 06:00] VITALS: BP 103/53
[2021-05-13] MEDS: HEPARIN SOD (PORCINE) 5000UNITS/ML 1ML VIAL/SYRINGE SQ SCH ×2 (08:53→19:55)
[2021-05-13] MEDS: LACTIC ACID 12% LOTION 225 GM BTL TOP SCH (08:53)
[2021-05-13] MEDS: FUROSEMIDE 20 MG TAB PO SCH (08:53)
[2021-05-13] MEDS: METOPROLOL SUCC *XL* 25MG TAB (TopROL *XL*) PO SCH (09:00)
[2021-05-13] MEDS: ATORVASTATIN 20 MG TAB PO SCH (19:55)
[2021-05-14] MEDS: hydrOXYzine 25 MG TAB PO PRN (01:53)
[2021-05-14 06:00] VITALS: BP 120/60
[2021-05-14] MEDS: HEPARIN SOD (PORCINE) 5000UNITS/ML 1ML VIAL/SYRINGE SQ SCH ×2 (09:02→20:06)
[2021-05-14] MEDS: FUROSEMIDE 20 MG TAB PO SCH (09:05)
[2021-05-14] MEDS: LACTIC ACID 12% LOTION 225 GM BTL TOP SCH (09:07)
[2021-05-14] MEDS: METOPROLOL SUCC *XL* 25MG TAB (TopROL *XL*) PO SCH (09:07)
[2021-05-14 10:32] LABS: HEMATOCRIT 35.7 % (36.0-47.0); HEMOGLOBIN 11.2 g/dl (12.0-15.5); MEAN CORPUSCULAR HEMOGLOBIN 29.2 pg (27.0-33.0); MEAN CORPUSCULAR HGB CONC 31.4 g/dl (32.0-36.5); PLATELET COUNT, AUTOMATED 183 10^3/uL (150-450); RED BLOOD COUNT 3.84 10^6/uL (4.00-5.40)
[2021-05-14 11:06] LABS: ALBUMIN 2.5 GM/DL (3.2-5.2); ALT/SGPT 32 U/L (12-78); BILIRUBIN,TOTAL 0.5 MG/DL (0.2-1.0); BLOOD UREA NITROGEN 15 MG/DL (7-18); CALCIUM LEVEL 8.8 MG/DL (8.8-10.2); CARBON DIOXIDE LEVEL 31 MEQ/L (21-32); CHLORIDE LEVEL 104 MEQ/L (98-107); CREATININE FOR GFR 0.65 MG/DL (0.55-1.30); GLOMERULAR FILTRATION RATE > 60.0 (>32); GLUCOSE, FASTING 137 MG/DL (70-100); NT-PRO BNP 452 PG/ML (<450); SODIUM LEVEL 141 MEQ/L (136-145); TOTAL PROTEIN 5.9 GM/DL (6.4-8.2)
[2021-05-14] MEDS: ATORVASTATIN 20 MG TAB PO SCH (20:05)
[2021-05-15] MEDS: HEPARIN SOD (PORCINE) 5000UNITS/ML 1ML VIAL/SYRINGE SQ SCH ×2 (08:34→20:25)
[2021-05-15] MEDS: FUROSEMIDE 20 MG TAB PO SCH (08:34)
[2021-05-15] MEDS: hydrOXYzine 25 MG TAB PO PRN (08:34)
[2021-05-15] MEDS: METOPROLOL SUCC *XL* 25MG TAB (TopROL *XL*) PO SCH (08:39)
[2021-05-15] MEDS: LACTIC ACID 12% LOTION 225 GM BTL TOP SCH (08:40)
[2021-05-15] MEDS: ACETAMINOPHEN TAB 650MG DOSE (2X325MG) PO PRN (13:43)
[2021-05-15 14:00] VITALS: BP 97/56
[2021-05-15] MEDS ORDERED: LevoFLOXacin IV 500 MG in IV 1 EA IV ONE (14:00)
[2021-05-15] MEDS: ATORVASTATIN 20 MG TAB PO SCH (20:25)
[2021-05-16 06:00] VITALS: BP 114/63
[2021-05-16] MEDS: FUROSEMIDE 20 MG TAB PO SCH (10:11)
[2021-05-16] MEDS: METOPROLOL SUCC *XL* 25MG TAB (TopROL *XL*) PO SCH (10:12)
[2021-05-16] MEDS: LACTIC ACID 12% LOTION 225 GM BTL TOP SCH (10:12)
[2021-05-16] MEDS: HEPARIN SOD (PORCINE) 5000UNITS/ML 1ML VIAL/SYRINGE SQ SCH ×2 (10:12→20:43)
[2021-05-16] MEDS: LevoFLOXacin IV 250 MG in IV 1 EA IV SCH (14:28)
[2021-05-16] MEDS: ATORVASTATIN 20 MG TAB PO SCH (20:43)
[2021-05-17 06:00] VITALS: BP 119/65
[2021-05-17] MEDS: METOPROLOL SUCC *XL* 25MG TAB (TopROL *XL*) PO SCH (09:00)
[2021-05-17] MEDS: HEPARIN SOD (PORCINE) 5000UNITS/ML 1ML VIAL/SYRINGE SQ SCH ×2 (09:27→20:44)
[2021-05-17] MEDS: FUROSEMIDE 20 MG TAB PO SCH (09:27)
[2021-05-17 09:28] VITALS: BP 109/57
[2021-05-17] MEDS: LACTIC ACID 12% LOTION 225 GM BTL TOP SCH (09:28)
[2021-05-17] MEDS: LevoFLOXacin IV 250 MG in IV 1 EA IV SCH (14:52)
[2021-05-17] MEDS: ATORVASTATIN 20 MG TAB PO SCH (20:43)
[2021-05-18 06:00] VITALS: BP 124/75
[2021-05-18] MEDS: METOPROLOL SUCC *XL* 25MG TAB (TopROL *XL*) PO SCH (08:48)
[2021-05-18] MEDS: FUROSEMIDE 20 MG TAB PO SCH (08:48)
[2021-05-18] MEDS: HEPARIN SOD (PORCINE) 5000UNITS/ML 1ML VIAL/SYRINGE SQ SCH ×2 (08:48→20:20)
[2021-05-18] MEDS: LACTIC ACID 12% LOTION 225 GM BTL TOP SCH (08:51)
[2021-05-18] MEDS: LevoFLOXacin IV 250 MG in IV 1 EA IV SCH (13:57)
[2021-05-18] MEDS: ATORVASTATIN 20 MG TAB PO SCH (20:19)
[2021-05-19 06:00] VITALS: BP 100/60
[2021-05-19] MEDS: HEPARIN SOD (PORCINE) 5000UNITS/ML 1ML VIAL/SYRINGE SQ SCH ×2 (08:56→20:24)
[2021-05-19] MEDS: LACTIC ACID 12% LOTION 225 GM BTL TOP SCH (08:56)
[2021-05-19] MEDS: METOPROLOL SUCC *XL* 25MG TAB (TopROL *XL*) PO SCH (08:58)
[2021-05-19] MEDS: FUROSEMIDE 20 MG TAB PO SCH (09:00)
[2021-05-19] MEDS: LevoFLOXacin IV 250 MG in IV 1 EA IV SCH (14:44)
[2021-05-19] MEDS: ATORVASTATIN 20 MG TAB PO SCH (20:24)
[2021-05-19] MEDS: hydrOXYzine 25 MG TAB PO PRN (20:24)
[2021-05-20] MEDS: hydrOXYzine 25 MG TAB PO PRN ×3 (05:59→21:51)
[2021-05-20 06:00] VITALS: BP 106/54
[2021-05-20] MEDS: FUROSEMIDE 20 MG TAB PO SCH (08:43)
[2021-05-20] MEDS: HEPARIN SOD (PORCINE) 5000UNITS/ML 1ML VIAL/SYRINGE SQ SCH ×2 (08:43→21:52)
[2021-05-20] MEDS: METOPROLOL SUCC *XL* 25MG TAB (TopROL *XL*) PO SCH (08:44)
[2021-05-20] MEDS: LACTIC ACID 12% LOTION 225 GM BTL TOP SCH (08:44)
[2021-05-20] MEDS: ACETAMINOPHEN TAB 650MG DOSE (2X325MG) PO PRN (08:45)
[2021-05-20] MEDS: MOM 30ML SUSPENSION UDC PO PRN (13:44)
[2021-05-20] MEDS: LevoFLOXacin IV 250 MG in IV 1 EA IV SCH (13:45)
[2021-05-20] MEDS: ATORVASTATIN 20 MG TAB PO SCH (21:51)
[2021-05-21 06:00] VITALS: BP 116/55
[2021-05-21] MEDS: MOM 30ML SUSPENSION UDC PO PRN (07:59)
[2021-05-21] MEDS: HEPARIN SOD (PORCINE) 5000UNITS/ML 1ML VIAL/SYRINGE SQ SCH ×2 (08:00→20:21)
[2021-05-21] MEDS: ACETAMINOPHEN TAB 650MG DOSE (2X325MG) PO PRN (08:00)
[2021-05-21] MEDS: hydrOXYzine 25 MG TAB PO PRN (08:00)
[2021-05-21] MEDS: FUROSEMIDE 20 MG TAB PO SCH (08:00)
[2021-05-21] MEDS: METOPROLOL SUCC *XL* 25MG TAB (TopROL *XL*) PO SCH (08:03)
[2021-05-21] MEDS: LACTIC ACID 12% LOTION 225 GM BTL TOP SCH (08:03)
[2021-05-21] MEDS: LevoFLOXacin IV 250 MG in IV 1 EA IV SCH (14:13)
[2021-05-21] MEDS: ATORVASTATIN 20 MG TAB PO SCH (20:21)
[2021-05-22 06:00] VITALS: BP 119/56
[2021-05-22] MEDS: METOPROLOL SUCC *XL* 25MG TAB (TopROL *XL*) PO SCH (08:54)
[2021-05-22] MEDS: FUROSEMIDE 20 MG TAB PO SCH (08:54)
[2021-05-22] MEDS: HEPARIN SOD (PORCINE) 5000UNITS/ML 1ML VIAL/SYRINGE SQ SCH ×2 (08:55→20:01)
[2021-05-22] MEDS: LACTIC ACID 12% LOTION 225 GM BTL TOP SCH (08:56)
[2021-05-22] MEDS: hydrOXYzine 25 MG TAB PO PRN ×2 (14:43→20:01)
[2021-05-22] MEDS: LevoFLOXacin IV 250 MG in IV 1 EA IV SCH (14:43)
[2021-05-22] MEDS: ATORVASTATIN 20 MG TAB PO SCH (20:01)
[2021-05-23 06:00] VITALS: BP 124/66
[2021-05-23] MEDS: FUROSEMIDE 20 MG TAB PO SCH (10:06)
[2021-05-23] MEDS: HEPARIN SOD (PORCINE) 5000UNITS/ML 1ML VIAL/SYRINGE SQ SCH ×2 (10:07→20:07)
[2021-05-23] MEDS: LACTIC ACID 12% LOTION 225 GM BTL TOP SCH (10:07)
[2021-05-23] MEDS: METOPROLOL SUCC *XL* 25MG TAB (TopROL *XL*) PO SCH (10:09)
[2021-05-23] MEDS: ACETAMINOPHEN TAB 650MG DOSE (2X325MG) PO PRN (20:07)
[2021-05-23] MEDS: ATORVASTATIN 20 MG TAB PO SCH (20:07)
[2021-05-23] MEDS: hydrOXYzine 25 MG TAB PO PRN (20:07)
[2021-05-24 06:00] VITALS: BP 124/59
[2021-05-24] MEDS: hydrOXYzine 25 MG TAB PO PRN ×2 (08:49→20:45)
[2021-05-24] MEDS: METOPROLOL SUCC *XL* 25MG TAB (TopROL *XL*) PO SCH (08:50)
[2021-05-24] MEDS: FUROSEMIDE 20 MG TAB PO SCH (08:51)
[2021-05-24] MEDS: HEPARIN SOD (PORCINE) 5000UNITS/ML 1ML VIAL/SYRINGE SQ SCH ×2 (08:51→20:45)
[2021-05-24] MEDS: LACTIC ACID 12% LOTION 225 GM BTL TOP SCH (08:51)
[2021-05-24] MEDS: ATORVASTATIN 20 MG TAB PO SCH (20:45)
[2021-05-25] MEDS: hydrOXYzine 25 MG TAB PO PRN (03:17)
[2021-05-25 05:00] VITALS: BP 122/63
[2021-05-25 06:00] LABS: HEMOGLOBIN 11.4 g/dl (12.0-15.5); MEAN CORPUSCULAR HEMOGLOBIN 29.6 pg (27.0-33.0); MEAN CORPUSCULAR HGB CONC 31.7 g/dl (32.0-36.5); MEAN CORPUSCULAR VOLUME 93.5 fl (80.0-96.0); PLATELET COUNT, AUTOMATED 286 10^3/uL (150-450); RED BLOOD COUNT 3.85 10^6/uL (4.00-5.40); WHITE BLOOD COUNT 6.1 10^3/uL (4.0-10.0)
[2021-05-25 06:27] LABS: ALBUMIN 2.6 GM/DL (3.2-5.2); ALT/SGPT 40 U/L (12-78); BILIRUBIN,TOTAL 0.5 MG/DL (0.2-1.0); BLOOD UREA NITROGEN 20 MG/DL (7-18); CALCIUM LEVEL 8.9 MG/DL (8.8-10.2); CARBON DIOXIDE LEVEL 32 MEQ/L (21-32); CHLORIDE LEVEL 103 MEQ/L (98-107); CREATININE FOR GFR 0.59 MG/DL (0.55-1.30); GLOMERULAR FILTRATION RATE > 60.0 (>32); GLUCOSE, FASTING 86 MG/DL (70-100); POTASSIUM SERUM 4.2 MEQ/L (3.5-5.1); SODIUM LEVEL 139 MEQ/L (136-145); TOTAL PROTEIN 6.1 GM/DL (6.4-8.2)
[2021-05-25] MEDS: METOPROLOL SUCC *XL* 25MG TAB (TopROL *XL*) PO SCH (09:50)
[2021-05-25] MEDS: HEPARIN SOD (PORCINE) 5000UNITS/ML 1ML VIAL/SYRINGE SQ SCH ×2 (09:50→21:33)
[2021-05-25] MEDS: FUROSEMIDE 20 MG TAB PO SCH (09:50)
[2021-05-25] MEDS: LACTIC ACID 12% LOTION 225 GM BTL TOP SCH (09:51)
[2021-05-25] MEDS: ATORVASTATIN 20 MG TAB PO SCH (21:33)
[2021-05-26 06:00] VITALS: BP 105/58
[2021-05-26] MEDS: HEPARIN SOD (PORCINE) 5000UNITS/ML 1ML VIAL/SYRINGE SQ SCH ×2 (08:51→21:47)
[2021-05-26] MEDS: LACTIC ACID 12% LOTION 225 GM BTL TOP SCH (08:51)
[2021-05-26] MEDS: FUROSEMIDE 20 MG TAB PO SCH (09:04)
[2021-05-26] MEDS: METOPROLOL SUCC *XL* 25MG TAB (TopROL *XL*) PO SCH (09:05)
[2021-05-26] MEDS: ATORVASTATIN 20 MG TAB PO SCH (21:48)
[2021-05-26] MEDS: hydrOXYzine 25 MG TAB PO PRN (22:57)
[2021-05-26] MEDS: ACETAMINOPHEN TAB 650MG DOSE (2X325MG) PO PRN (22:58)
[2021-05-27] MEDS: hydrOXYzine 25 MG TAB PO PRN ×2 (05:40→23:16)
[2021-05-27 06:00] VITALS: BP 111/55
[2021-05-27 08:23] LABS: BASO # 0.1 10^3/uL (0.0-0.2); EOS # 0.2 10^3/uL (0.0-0.5); EOS % 3.8 % (0.0-3.0); HEMATOCRIT 36.3 % (36.0-47.0); HEMOGLOBIN 11.5 g/dl (12.0-15.5); LYMPH # 1.3 10^3/uL (1.5-5.0); LYMPH % 24.8 % (24.0-44.0); MEAN CORPUSCULAR HEMOGLOBIN 29.7 pg (27.0-33.0); MEAN CORPUSCULAR HGB CONC 31.7 g/dl (32.0-36.5); MEAN CORPUSCULAR VOLUME 93.8 fl (80.0-96.0); MONO # 0.6 10^3/uL (0.0-0.8); MONO % 11.8 % (2.0-8.0); NEUTROPHILS % 57.6 % (36.0-66.0); PLATELET COUNT, AUTOMATED 290 10^3/uL (150-450); RED BLOOD COUNT 3.87 10^6/uL (4.00-5.40); WHITE BLOOD COUNT 5.3 10^3/uL (4.0-10.0)
[2021-05-27 08:46] LABS: BLOOD UREA NITROGEN 27 MG/DL (7-18); CALCIUM LEVEL 8.9 MG/DL (8.8-10.2); CARBON DIOXIDE LEVEL 33 MEQ/L (21-32); CHLORIDE LEVEL 102 MEQ/L (98-107); CREATININE FOR GFR 0.59 MG/DL (0.55-1.30); GLOMERULAR FILTRATION RATE > 60.0 (>32); GLUCOSE, FASTING 88 MG/DL (70-100); MAGNESIUM LEVEL 2.4 MG/DL (1.8-2.4); POTASSIUM SERUM 3.8 MEQ/L (3.5-5.1); SODIUM LEVEL 141 MEQ/L (136-145)
[2021-05-27] MEDS: HEPARIN SOD (PORCINE) 5000UNITS/ML 1ML VIAL/SYRINGE SQ SCH ×2 (09:09→21:29)
[2021-05-27] MEDS: LACTIC ACID 12% LOTION 225 GM BTL TOP SCH (09:10)
[2021-05-27] MEDS: FUROSEMIDE 20 MG TAB PO SCH (09:10)
[2021-05-27] MEDS: METOPROLOL SUCC *XL* 25MG TAB (TopROL *XL*) PO SCH (09:11)
[2021-05-27] MEDS: ATORVASTATIN 20 MG TAB PO SCH (21:29)
[2021-05-27] MEDS: ACETAMINOPHEN TAB 650MG DOSE (2X325MG) PO PRN (23:18)
[2021-05-28 06:00] VITALS: BP 106/53
[2021-05-28 07:27] LABS: BASO % 0.8 % (0.0-1.0); EOS # 0.2 10^3/uL (0.0-0.5); EOS % 3.8 % (0.0-3.0); HEMATOCRIT 34.7 % (36.0-47.0); HEMOGLOBIN 10.9 g/dl (12.0-15.5); LYMPH # 1.6 10^3/uL (1.5-5.0); LYMPH % 31.7 % (24.0-44.0); MEAN CORPUSCULAR HEMOGLOBIN 29.5 pg (27.0-33.0); MEAN CORPUSCULAR HGB CONC 31.4 g/dl (32.0-36.5); MONO # 0.6 10^3/uL (0.0-0.8); MONO % 11.4 % (2.0-8.0); NEUTROPHILS # 2.6 10^3/uL (1.5-8.5); NEUTROPHILS % 51.1 % (36.0-66.0); PLATELET COUNT, AUTOMATED 281 10^3/uL (150-450); RED BLOOD COUNT 3.69 10^6/uL (4.00-5.40)
[2021-05-28 07:51] LABS: BLOOD UREA NITROGEN 24 MG/DL (7-18); CARBON DIOXIDE LEVEL 35 MEQ/L (21-32); CHLORIDE LEVEL 102 MEQ/L (98-107); CREATININE FOR GFR 0.58 MG/DL (0.55-1.30); GLOMERULAR FILTRATION RATE > 60.0 (>32); GLUCOSE, FASTING 88 MG/DL (70-100); MAGNESIUM LEVEL 2.5 MG/DL (1.8-2.4); POTASSIUM SERUM 3.6 MEQ/L (3.5-5.1); SODIUM LEVEL 140 MEQ/L (136-145)
[2021-05-28] MEDS: HEPARIN SOD (PORCINE) 5000UNITS/ML 1ML VIAL/SYRINGE SQ SCH ×2 (08:56→22:12)
[2021-05-28] MEDS: FUROSEMIDE 20 MG TAB PO SCH (08:56)
[2021-05-28] MEDS: METOPROLOL SUCC *XL* 25MG TAB (TopROL *XL*) PO SCH (08:56)
[2021-05-28] MEDS: LACTIC ACID 12% LOTION 225 GM BTL TOP SCH (08:57)
[2021-05-28] MEDS: hydrOXYzine 25 MG TAB PO PRN (22:12)
[2021-05-28] MEDS: ATORVASTATIN 20 MG TAB PO SCH (22:12)
[2021-05-29 06:00] VITALS: BP 110/57
[2021-05-29 08:55] LABS: BASO # 0.1 10^3/uL (0.0-0.2); BASO % 0.9 % (0.0-1.0); EOS # 0.2 10^3/uL (0.0-0.5); EOS % 2.8 % (0.0-3.0); HEMATOCRIT 38.9 % (36.0-47.0); HEMOGLOBIN 12.3 g/dl (12.0-15.5); LYMPH # 1.4 10^3/uL (1.5-5.0); LYMPH % 24.1 % (24.0-44.0); MEAN CORPUSCULAR HGB CONC 31.6 g/dl (32.0-36.5); MEAN CORPUSCULAR VOLUME 94.9 fl (80.0-96.0); MONO # 0.5 10^3/uL (0.0-0.8); MONO % 8.4 % (2.0-8.0); NEUTROPHILS # 3.6 10^3/uL (1.5-8.5); NEUTROPHILS % 63.1 % (36.0-66.0); PLATELET COUNT, AUTOMATED 282 10^3/uL (150-450); WHITE BLOOD COUNT 5.7 10^3/uL (4.0-10.0)
[2021-05-29] MEDS: METOPROLOL SUCC *XL* 25MG TAB (TopROL *XL*) PO SCH (09:00)
[2021-05-29 09:19] LABS: BLOOD UREA NITROGEN 19 MG/DL (7-18); CALCIUM LEVEL 9.1 MG/DL (8.8-10.2); CARBON DIOXIDE LEVEL 30 MEQ/L (21-32); CHLORIDE LEVEL 104 MEQ/L (98-107); GLOMERULAR FILTRATION RATE > 60.0 (>32); GLUCOSE, FASTING 131 MG/DL (70-100); MAGNESIUM LEVEL 2.4 MG/DL (1.8-2.4); POTASSIUM SERUM 4.1 MEQ/L (3.5-5.1); SODIUM LEVEL 142 MEQ/L (136-145)
[2021-05-29] MEDS: HEPARIN SOD (PORCINE) 5000UNITS/ML 1ML VIAL/SYRINGE SQ SCH ×2 (09:46→20:05)
[2021-05-29] MEDS: LACTIC ACID 12% LOTION 225 GM BTL TOP SCH (09:47)
[2021-05-29] MEDS: FUROSEMIDE 20 MG TAB PO SCH (09:47)
[2021-05-29] MEDS: hydrOXYzine 25 MG TAB PO PRN ×2 (11:04→20:15)
[2021-05-29] MEDS: ATORVASTATIN 20 MG TAB PO SCH (20:04)
[2021-05-30 06:00] VITALS: BP 103/56
[2021-05-30 07:09] LABS: BASO % 0.7 % (0.0-1.0); EOS # 0.2 10^3/uL (0.0-0.5); EOS % 2.6 % (0.0-3.0); HEMATOCRIT 35.2 % (36.0-47.0); HEMOGLOBIN 11.1 g/dl (12.0-15.5); LYMPH # 1.4 10^3/uL (1.5-5.0); LYMPH % 22.7 % (24.0-44.0); MEAN CORPUSCULAR HGB CONC 31.5 g/dl (32.0-36.5); MEAN CORPUSCULAR VOLUME 95.1 fl (80.0-96.0); MONO # 0.7 10^3/uL (0.0-0.8); MONO % 12.2 % (2.0-8.0); NEUTROPHILS # 3.7 10^3/uL (1.5-8.5); PLATELET COUNT, AUTOMATED 276 10^3/uL (150-450); WHITE BLOOD COUNT 6.1 10^3/uL (4.0-10.0)
[2021-05-30 07:37] LABS: BLOOD UREA NITROGEN 19 MG/DL (7-18); CALCIUM LEVEL 8.8 MG/DL (8.8-10.2); CARBON DIOXIDE LEVEL 32 MEQ/L (21-32); CHLORIDE LEVEL 104 MEQ/L (98-107); CREATININE FOR GFR 0.51 MG/DL (0.55-1.30); GLOMERULAR FILTRATION RATE > 60.0 (>32); GLUCOSE, FASTING 90 MG/DL (70-100); MAGNESIUM LEVEL 2.3 MG/DL (1.8-2.4); POTASSIUM SERUM 3.9 MEQ/L (3.5-5.1); SODIUM LEVEL 141 MEQ/L (136-145)
[2021-05-30] MEDS: HEPARIN SOD (PORCINE) 5000UNITS/ML 1ML VIAL/SYRINGE SQ SCH ×2 (08:35→20:04)
[2021-05-30] MEDS: FUROSEMIDE 20 MG TAB PO SCH (08:36)
[2021-05-30] MEDS: METOPROLOL SUCC *XL* 25MG TAB (TopROL *XL*) PO SCH (08:36)
[2021-05-30] MEDS: LACTIC ACID 12% LOTION 225 GM BTL TOP SCH (08:37)
[2021-05-30] MEDS: ATORVASTATIN 20 MG TAB PO SCH (20:03)
[2021-05-30] MEDS: hydrOXYzine 25 MG TAB PO PRN (20:03)
[2021-05-31 06:00] VITALS: BP 119/57
[2021-05-31] MEDS: METOPROLOL SUCC *XL* 25MG TAB (TopROL *XL*) PO SCH (07:58)
[2021-05-31] MEDS: FUROSEMIDE 20 MG TAB PO SCH (08:22)
[2021-05-31] MEDS: HEPARIN SOD (PORCINE) 5000UNITS/ML 1ML VIAL/SYRINGE SQ SCH ×2 (08:25→21:50)
[2021-05-31] MEDS: LACTIC ACID 12% LOTION 225 GM BTL TOP SCH (08:25)
[2021-05-31 08:30] LABS: BASO # 0.1 10^3/uL (0.0-0.2); BASO % 0.7 % (0.0-1.0); EOS # 0.2 10^3/uL (0.0-0.5); EOS % 3.2 % (0.0-3.0); HEMATOCRIT 39.8 % (36.0-47.0); HEMOGLOBIN 12.4 g/dl (12.0-15.5); LYMPH # 1.2 10^3/uL (1.5-5.0); LYMPH % 17.8 % (24.0-44.0); MEAN CORPUSCULAR HEMOGLOBIN 30.2 pg (27.0-33.0); MEAN CORPUSCULAR HGB CONC 31.2 g/dl (32.0-36.5); MEAN CORPUSCULAR VOLUME 97.1 fl (80.0-96.0); MONO # 0.6 10^3/uL (0.0-0.8); MONO % 9.2 % (2.0-8.0); NEUTROPHILS # 4.8 10^3/uL (1.5-8.5); NEUTROPHILS % 68.4 % (36.0-66.0)
[2021-05-31 09:04] LABS: BLOOD UREA NITROGEN 19 MG/DL (7-18); CALCIUM LEVEL 8.8 MG/DL (8.8-10.2); CARBON DIOXIDE LEVEL 25 MEQ/L (21-32); CHLORIDE LEVEL 104 MEQ/L (98-107); CREATININE FOR GFR 0.63 MG/DL (0.55-1.30); GLOMERULAR FILTRATION RATE > 60.0 (>32); GLUCOSE, FASTING 121 MG/DL (70-100); MAGNESIUM LEVEL 2.2 MG/DL (1.8-2.4); POTASSIUM SERUM 4.8 MEQ/L (3.5-5.1); SODIUM LEVEL 134 MEQ/L (136-145)
[2021-05-31] MEDS: hydrOXYzine 25 MG TAB PO PRN ×2 (14:44→21:50)
[2021-05-31] MEDS: ATORVASTATIN 20 MG TAB PO SCH (21:50)
[2021-06-01] MEDS: hydrOXYzine 25 MG TAB PO PRN (04:47)
[2021-06-01 06:00] VITALS: BP 108/59
[2021-06-01 07:28] LABS: BASO % 0.7 % (0.0-1.0); EOS # 0.2 10^3/uL (0.0-0.5); EOS % 2.8 % (0.0-3.0); HEMATOCRIT 35.8 % (36.0-47.0); HEMOGLOBIN 11.1 g/dl (12.0-15.5); LYMPH # 1.5 10^3/uL (1.5-5.0); LYMPH % 26.6 % (24.0-44.0); MEAN CORPUSCULAR HEMOGLOBIN 29.8 pg (27.0-33.0); MONO # 0.7 10^3/uL (0.0-0.8); MONO % 12.3 % (2.0-8.0); NEUTROPHILS # 3.3 10^3/uL (1.5-8.5); NEUTROPHILS % 56.7 % (36.0-66.0); PLATELET COUNT, AUTOMATED 250 10^3/uL (150-450); RED BLOOD COUNT 3.73 10^6/uL (4.00-5.40); WHITE BLOOD COUNT 5.8 10^3/uL (4.0-10.0)
[2021-06-01 07:53] LABS: BLOOD UREA NITROGEN 25 MG/DL (7-18); CALCIUM LEVEL 8.9 MG/DL (8.8-10.2); CARBON DIOXIDE LEVEL 32 MEQ/L (21-32); CHLORIDE LEVEL 103 MEQ/L (98-107); CREATININE FOR GFR 0.66 MG/DL (0.55-1.30); GLOMERULAR FILTRATION RATE > 60.0 (>32); GLUCOSE, FASTING 90 MG/DL (70-100); MAGNESIUM LEVEL 2.5 MG/DL (1.8-2.4); POTASSIUM SERUM 4.2 MEQ/L (3.5-5.1); SODIUM LEVEL 140 MEQ/L (136-145)
[2021-06-01] MEDS: HEPARIN SOD (PORCINE) 5000UNITS/ML 1ML VIAL/SYRINGE SQ SCH ×2 (08:16→22:30)
[2021-06-01] MEDS: LACTIC ACID 12% LOTION 225 GM BTL TOP SCH (08:16)
[2021-06-01] MEDS: FUROSEMIDE 20 MG TAB PO SCH (08:16)
[2021-06-01] MEDS: METOPROLOL SUCC *XL* 25MG TAB (TopROL *XL*) PO SCH (08:16)
[2021-06-01] MEDS: ATORVASTATIN 20 MG TAB PO SCH (22:30)
[2021-06-02] MEDS: hydrOXYzine 25 MG TAB PO PRN ×2 (03:06→20:40)
[2021-06-02 06:00] VITALS: BP 120/63
[2021-06-02 07:01] LABS: BASO % 0.5 % (0.0-1.0); EOS # 0.2 10^3/uL (0.0-0.5); EOS % 2.9 % (0.0-3.0); HEMATOCRIT 36.8 % (36.0-47.0); HEMOGLOBIN 11.6 g/dl (12.0-15.5); LYMPH # 1.4 10^3/uL (1.5-5.0); LYMPH % 23.7 % (24.0-44.0); MEAN CORPUSCULAR HEMOGLOBIN 30.1 pg (27.0-33.0); MEAN CORPUSCULAR HGB CONC 31.5 g/dl (32.0-36.5); MEAN CORPUSCULAR VOLUME 95.6 fl (80.0-96.0); MONO # 0.6 10^3/uL (0.0-0.8); MONO % 10.5 % (2.0-8.0); NEUTROPHILS # 3.7 10^3/uL (1.5-8.5); NEUTROPHILS % 61.7 % (36.0-66.0); PLATELET COUNT, AUTOMATED 239 10^3/uL (150-450); RED BLOOD COUNT 3.85 10^6/uL (4.00-5.40); WHITE BLOOD COUNT 5.9 10^3/uL (4.0-10.0)
[2021-06-02 07:28] LABS: BLOOD UREA NITROGEN 25 MG/DL (7-18); CALCIUM LEVEL 8.9 MG/DL (8.8-10.2); CARBON DIOXIDE LEVEL 32 MEQ/L (21-32); CHLORIDE LEVEL 104 MEQ/L (98-107); CREATININE FOR GFR 0.54 MG/DL (0.55-1.30); GLOMERULAR FILTRATION RATE > 60.0 (>32); GLUCOSE, FASTING 93 MG/DL (70-100); MAGNESIUM LEVEL 2.5 MG/DL (1.8-2.4); POTASSIUM SERUM 4.3 MEQ/L (3.5-5.1); SODIUM LEVEL 141 MEQ/L (136-145)
[2021-06-02] MEDS: LACTIC ACID 12% LOTION 225 GM BTL TOP SCH (09:14)
[2021-06-02] MEDS: HEPARIN SOD (PORCINE) 5000UNITS/ML 1ML VIAL/SYRINGE SQ SCH ×2 (09:14→20:41)
[2021-06-02] MEDS: METOPROLOL SUCC *XL* 25MG TAB (TopROL *XL*) PO SCH (09:15)
[2021-06-02] MEDS: FUROSEMIDE 20 MG TAB PO SCH (09:15)
[2021-06-02] MEDS: ATORVASTATIN 20 MG TAB PO SCH (20:40)
[2021-06-03 05:48] VITALS: BP 104/54
[2021-06-03 07:53] LABS: BASO % 0.7 % (0.0-1.0); EOS # 0.2 10^3/uL (0.0-0.5); HEMATOCRIT 34.5 % (36.0-47.0); LYMPH # 1.6 10^3/uL (1.5-5.0); LYMPH % 27.2 % (24.0-44.0); MEAN CORPUSCULAR HEMOGLOBIN 30.2 pg (27.0-33.0); MEAN CORPUSCULAR HGB CONC 31.9 g/dl (32.0-36.5); MEAN CORPUSCULAR VOLUME 94.8 fl (80.0-96.0); MONO # 0.7 10^3/uL (0.0-0.8); MONO % 12.8 % (2.0-8.0); NEUTROPHILS # 3.2 10^3/uL (1.5-8.5); NEUTROPHILS % 55.8 % (36.0-66.0); PLATELET COUNT, AUTOMATED 240 10^3/uL (150-450); RED BLOOD COUNT 3.64 10^6/uL (4.00-5.40); WHITE BLOOD COUNT 5.7 10^3/uL (4.0-10.0)
[2021-06-03 08:15] LABS: BLOOD UREA NITROGEN 26 MG/DL (7-18); CARBON DIOXIDE LEVEL 32 MEQ/L (21-32); CHLORIDE LEVEL 103 MEQ/L (98-107); GLOMERULAR FILTRATION RATE > 60.0 (>32); GLUCOSE, FASTING 85 MG/DL (70-100); MAGNESIUM LEVEL 2.3 MG/DL (1.8-2.4); POTASSIUM SERUM 3.7 MEQ/L (3.5-5.1); SODIUM LEVEL 140 MEQ/L (136-145)
[2021-06-03] MEDS: FUROSEMIDE 20 MG TAB PO SCH (09:00)
[2021-06-03] MEDS: METOPROLOL SUCC *XL* 25MG TAB (TopROL *XL*) PO SCH (09:00)
[2021-06-03] MEDS: HEPARIN SOD (PORCINE) 5000UNITS/ML 1ML VIAL/SYRINGE SQ SCH ×2 (10:12→20:55)
[2021-06-03] MEDS: LACTIC ACID 12% LOTION 225 GM BTL TOP SCH (10:13)
[2021-06-03] MEDS: ATORVASTATIN 20 MG TAB PO SCH (20:54)
[2021-06-03] MEDS: hydrOXYzine 25 MG TAB PO PRN (20:55)
[2021-06-03] MEDS: ACETAMINOPHEN TAB 650MG DOSE (2X325MG) PO PRN (20:56)
[2021-06-04] MEDS: hydrOXYzine 25 MG TAB PO PRN ×2 (04:15→20:20)
[2021-06-04] MEDS: ACETAMINOPHEN TAB 650MG DOSE (2X325MG) PO PRN ×2 (04:16→20:20)
[2021-06-04 06:00] VITALS: BP 107/58
[2021-06-04] MEDS: METOPROLOL SUCC *XL* 25MG TAB (TopROL *XL*) PO SCH (08:54)
[2021-06-04] MEDS: SENOKOT S TAB PO PRN (08:54)
[2021-06-04] MEDS: VANICREAM MOISTURIZING SKIN CREAM 113GM TUBE TOP PRN ×2 (08:54→20:21)
[2021-06-04] MEDS: FUROSEMIDE 20 MG TAB PO SCH (08:54)
[2021-06-04] MEDS: LACTIC ACID 12% LOTION 225 GM BTL TOP SCH (08:55)
[2021-06-04] MEDS: HEPARIN SOD (PORCINE) 5000UNITS/ML 1ML VIAL/SYRINGE SQ SCH ×2 (08:55→20:20)
[2021-06-04] MEDS: ATORVASTATIN 20 MG TAB PO SCH (20:20)
[2021-06-04] MEDS: RAMELTEON 8 MG TAB (ROZEREM) PO PRN (21:42)
[2021-06-05] MEDS: hydrOXYzine 25 MG TAB PO PRN ×2 (03:13→21:28)
[2021-06-05] MEDS: ACETAMINOPHEN TAB 650MG DOSE (2X325MG) PO PRN (03:14)
[2021-06-05 06:00] VITALS: BP 123/56
[2021-06-05] MEDS: METOPROLOL SUCC *XL* 25MG TAB (TopROL *XL*) PO SCH (09:00)
[2021-06-05] MEDS: SENOKOT S TAB PO PRN (12:56)
[2021-06-05] MEDS: FUROSEMIDE 20 MG TAB PO SCH (12:58)
[2021-06-05] MEDS: LACTIC ACID 12% LOTION 225 GM BTL TOP SCH (12:59)
[2021-06-05] MEDS: HEPARIN SOD (PORCINE) 5000UNITS/ML 1ML VIAL/SYRINGE SQ SCH ×2 (12:59→21:28)
[2021-06-05] MEDS: ATORVASTATIN 20 MG TAB PO SCH (21:28)
[2021-06-06] MEDS: ACETAMINOPHEN TAB 650MG DOSE (2X325MG) PO PRN (04:56)
[2021-06-06 06:00] VITALS: BP 133/70
[2021-06-06] MEDS: METOPROLOL SUCC *XL* 25MG TAB (TopROL *XL*) PO SCH (09:00)
[2021-06-06] MEDS: FUROSEMIDE 20 MG TAB PO SCH (09:01)
[2021-06-06] MEDS: HEPARIN SOD (PORCINE) 5000UNITS/ML 1ML VIAL/SYRINGE SQ SCH ×2 (09:02→21:05)
[2021-06-06] MEDS: LACTIC ACID 12% LOTION 225 GM BTL TOP SCH (09:02)
[2021-06-06] MEDS: ATORVASTATIN 20 MG TAB PO SCH (21:05)
[2021-06-06] MEDS: RAMELTEON 8 MG TAB (ROZEREM) PO PRN (21:05)
[2021-06-07] MEDS: hydrOXYzine 25 MG TAB PO PRN (03:05)
[2021-06-07 06:00] VITALS: BP 138/69
[2021-06-07] MEDS: HEPARIN SOD (PORCINE) 5000UNITS/ML 1ML VIAL/SYRINGE SQ SCH ×2 (09:33→19:57)
[2021-06-07] MEDS: FUROSEMIDE 20 MG TAB PO SCH (09:34)
[2021-06-07] MEDS: METOPROLOL SUCC *XL* 25MG TAB (TopROL *XL*) PO SCH (09:36)
[2021-06-07] MEDS: LACTIC ACID 12% LOTION 225 GM BTL TOP SCH (09:37)
[2021-06-07] MEDS: SENOKOT S TAB PO PRN (11:02)
[2021-06-07] MEDS: MOM 30ML SUSPENSION UDC PO PRN (11:02)
[2021-06-07] MEDS: RAMELTEON 8 MG TAB (ROZEREM) PO PRN (19:57)
[2021-06-07] MEDS: ATORVASTATIN 20 MG TAB PO SCH (19:58)
[2021-06-08 06:00] VITALS: BP 107/50
[2021-06-08] MEDS: METOPROLOL SUCC *XL* 25MG TAB (TopROL *XL*) PO SCH (09:00)
[2021-06-08] MEDS: FUROSEMIDE 20 MG TAB PO SCH (09:06)
[2021-06-08] MEDS: HEPARIN SOD (PORCINE) 5000UNITS/ML 1ML VIAL/SYRINGE SQ SCH ×2 (09:08→20:04)
[2021-06-08] MEDS: LACTIC ACID 12% LOTION 225 GM BTL TOP SCH (09:08)
[2021-06-08] MEDS: ATORVASTATIN 20 MG TAB PO SCH (20:04)
[2021-06-09 06:00] VITALS: BP 125/58
[2021-06-09] MEDS: METOPROLOL SUCC *XL* 25MG TAB (TopROL *XL*) PO SCH (08:34)
[2021-06-09] MEDS: FUROSEMIDE 20 MG TAB PO SCH (08:34)
[2021-06-09] MEDS: LACTIC ACID 12% LOTION 225 GM BTL TOP SCH (08:35)
[2021-06-09] MEDS: HEPARIN SOD (PORCINE) 5000UNITS/ML 1ML VIAL/SYRINGE SQ SCH ×2 (08:35→21:12)
[2021-06-09] MEDS: ATORVASTATIN 20 MG TAB PO SCH (21:13)
[2021-06-10 06:00] VITALS: BP 122/60
[2021-06-10 08:01] VITALS: BP 102/53
[2021-06-10 09:00] VITALS: BP 102/53
[2021-06-10] MEDS: METOPROLOL SUCC *XL* 25MG TAB (TopROL *XL*) PO SCH (09:00)
[2021-06-10] MEDS ORDERED: FURO20TA2 PO (09:08)
[2021-06-10] MEDS ORDERED: SENN-52 PO (09:08)
[2021-06-10] MEDS ORDERED: ATOR1TAB19 PO (09:08)
[2021-06-10] MEDS: FUROSEMIDE 20 MG TAB PO SCH (09:37)
[2021-06-10] MEDS: HEPARIN SOD (PORCINE) 5000UNITS/ML 1ML VIAL/SYRINGE SQ SCH (09:38)
[2021-06-10] MEDS: LACTIC ACID 12% LOTION 225 GM BTL TOP SCH (09:39)
== END 2021-06-10 13:33 | DRG 177 ==
LOC: M ED 00:34 → M ED INP 05:13 → ENRESERV 16:52 → M 4MAIN 19:04 → OBSVTOIN 04-26 09:47 → M MSPAV 05-11 18:03
PROVIDERS: ADMIT Internal Medicine; ATTEND Internal Medicine Nephrology
DX: U07.1 COVID-19 (principal); E43 Unspecified severe protein-calorie malnutrition; J15.9 Unspecified bacterial pneumonia; J12.82 Pneumonia due to coronavirus disease 2019; Z68.1 Body mass index [BMI] 19.9 or less, adult; L89.152 Pressure ulcer of sacral region, stage 2; I10 Essential (primary) hypertension; Z96.642 Presence of left artificial hip joint; E78.5 Hyperlipidemia, unspecified; M40.209 Unspecified kyphosis, site unspecified; I25.10 Atherosclerotic heart disease of native coronary artery without angina pectoris; L57.0 Actinic keratosis; I48.91 Unspecified atrial fibrillation; Z79.01 Long term (current) use of anticoagulants; E04.1 Nontoxic single thyroid nodule